=== PATIENT | male | born 1965 | race Caucasian/White ===

== ENCOUNTER 2018-04-09 18:59 | Outpatient (REF) | payer BC, SELFPAY ==
[2018-04-09 22:22] LABS: ALT 29 U/L (12-78); AST 19 U/L (15-37); Albumin 3.4 g/dL (3.4-5.0); Alkaline Phosphatase 70 U/L (46-116); Anion Gap 9.4 mmol/L (3-11); BUN 16 mg/dL (7-18); Bilirubin, Total 0.3 mg/dL (0.2-1.0); CO2 28.6 mmol/L (21.0-32.0); CREATININE 1.05 mg/dL (0.70-1.30); Calcium 8.4 mg/dL (8.5-10.1); Chloride 105 mmol/L (98-107); Glucose 78 mg/dL (70-100); Potassium 3.9 mmol/L (3.5-5.1); Sodium 143 mmol/L (136-145); Total Protein 6.8 g/dL (6.4-8.2)
== END 2018-04-09 19:19 ==
LOC: NCHCN 18:59
PROVIDERS: PCP Internal Medicine; Visit Provider Nurse Practitioner Family
DX: M54.16 Radiculopathy, lumbar region (principal); M54.2 Cervicalgia; R53.83 Other fatigue; R07.9 Chest pain, unspecified; G25.81 Restless legs syndrome; F32.9 Major depressive disorder, single episode, unspecified; F17.209 Nicotine dependence, unspecified, with unspecified nicotine-induced disorders; E66.9 Obesity, unspecified
CPT/HCPCS: 80053

== ENCOUNTER 2018-07-26 11:44 | Outpatient (CLI) | payer BC, SELFPAY ==
[2018-07-26 13:24] LABS: Ferritin 108 ng/mL (8-388); TSH 2.29 uIU/mL (0.358-3.74)
== END 2018-07-26 12:04 ==
PROVIDERS: PCP Internal Medicine; Visit Provider Nurse Practitioner
DX: M25.50 Pain in unspecified joint (principal); R53.83 Other fatigue
CPT/HCPCS: 36415; 82728; 84443

== ENCOUNTER 2019-08-20 14:50 | Outpatient (REF) | payer BC, SELFPAY ==
[2019-08-20 21:09] LABS: ALT 31 U/L (16-63); AST 16 U/L (15-37); Albumin 4.2 g/dL (3.4-5.0); Alkaline Phosphatase 76 U/L (46-116); Anion Gap 7.5 mmol/L (3-11); BUN 13 mg/dL (7-18); Bilirubin, Total 0.5 mg/dL (0.2-1.0); CO2 28.5 mmol/L (21.0-32.0); CREATININE 0.85 mg/dL (0.70-1.30); Calcium 9.4 mg/dL (8.5-10.1); Chloride 101 mmol/L (98-107); Glucose 101 mg/dL (74-106); Potassium 4.6 mmol/L (3.5-5.1); Sodium 137 mmol/L (136-145); Total Protein 7.7 g/dL (6.4-8.2)
[2019-08-22 10:04] LABS: HIV-1/2 Ag & Ab Screen Negative (Negative)
[2019-08-22 10:16] LABS: Hepatitis C Ab w Rflx HCV PCR Negative (Negative)
== END 2019-08-20 15:10 ==
LOC: NCHCN 14:50
PROVIDERS: PCP Internal Medicine; Visit Provider Nurse Practitioner Family
DX: E78.5 Hyperlipidemia, unspecified (principal); R07.9 Chest pain, unspecified; K21.9 Gastro-esophageal reflux disease without esophagitis; E66.9 Obesity, unspecified; Z11.4 Encounter for screening for human immunodeficiency virus [HIV]; Z11.59 Encounter for screening for other viral diseases
CPT/HCPCS: 80053; 86803; 87389

== ENCOUNTER 2019-09-10 01:14 | Outpatient (CLI) | payer BC, SELFPAY ==
--- NOTE | 2019-09-10 10:10 | DI.MRI_ITS ---
EXAM: MR LUMBAR SPINE WO CLINICAL HISTORY: LUMBAR BACK PAIN, WITH RADICULOPATHY,M54.16,M51.36,DEGENERATIVE DISC DISEAS. TECHNIQUE: Multiplanar multisequence MRI of the Lumbar spine was performed. COMPARISON: MR MRI - LUMBAR SPINE WO CONTRAST from 06/12/2015 FINDINGS: Bones: The last intervertebral disc space is designated the L5/S1 level for the numbering purpose of this examination. The vertebral body heights are well maintained. Alignment is satisfactory. Degene rative endplate signal changes are seen at multiple levels. Cord: The conus tip ends at the T12 level. It is of normal size and signal intensity. T12-L1: No disc herniations or bulges are present. No central spinal canal or neural foraminal stenos is. L1-2: No disc herniations or bulges are present. No central spinal canal or neural foraminal stenosis . L2-3: There is a mild diffuse disc bulge. The nerve endplate signal changes are present. No central spinal canal or neural foraminal stenosis. L3-4: There is a diffuse disc bulge and endplate degenerative signal change. Stable moderate central spinal canal stenosis is present. There is stable bilateral neural foraminal stenosis. Hypertrophi c changes of the facets and ligamentum flavum are noted. L4-5: There is a diffuse disc bulge present. Degenerative endplate signal changes are present. Ther e are hypertrophic changes of the facets and ligamentum flavum. These all contribute to cause modera te central spinal canal stenosis, severe left neural foraminal stenosis and moderate right neural for aminal stenosis.The findings appear stable compared to the prior examination. L5-S1: No disc herniations or bulges are present. No central spinal canal or neural foraminal stenosi s. Soft tissues: The visualized SI joints and sacrum are well maintained. The paraspinal soft tissues ar e unremarkable. IMPRESSION: Stable multilevel degenerative changes in the lumbar spine. DATA REPOSITORY:
== END 2019-09-10 01:34 ==
PROVIDERS: PCP Internal Medicine; Visit Provider Nurse Practitioner Family
DX: M54.5 Low back pain (principal); M54.16 Radiculopathy, lumbar region; M51.36 Other intervertebral disc degeneration, lumbar region; M48.061 Spinal stenosis, lumbar region without neurogenic claudication
CPT/HCPCS: 72148

== ENCOUNTER 2020-02-12 14:47 | Outpatient (CLI) | payer BC, SELFPAY ==
--- NOTE | 2020-02-12 09:00 | DI.RAD_ITS ---
EXAM: XR SHOULDER RT COMPLETE 2+V CLINICAL HISTORY: Rt shoulder pain. TECHNIQUE: 2D digital imaging was performed. COMPARISON: No exams were available for comparison FINDINGS: Moderate degenerative changes are seen at the acromioclavicular joint. There is a well corticated os seous density at the superior adjacent to the superior aspect of the distal clavicle which appears ch ronic. There is mild superior subluxation of the humeral head which may reflect chronic rotator cuff injury. There is a well corticated density inferior to the humeral head which appears chronic. No acute fracture or dislocation. The soft tissues are unremarkable. IMPRESSION: Degenerative changes of the right shoulder. DATA REPOSITORY: RADIATION DOSE DELIVERED:
== END 2020-02-12 15:07 ==
PROVIDERS: PCP Nurse Practitioner Family; Visit Provider Student in an Organized Health Care Education/Training Program
DX: M19.011 Primary osteoarthritis, right shoulder (principal)
CPT/HCPCS: 73030

== ENCOUNTER → 2020-02-26 03:15 | Outpatient (CLI) | payer BC, SELFPAY ==
--- NOTE | 2020-02-26 07:00 | DI.MRI_ITS ---
EXAM: MR UPPER JOINT RT WO CLINICAL HISTORY: Traumatic shoulder injury, profound weakness,? MASSIVE CHRONIC ROTATOR CUFF TECHNIQUE: Multiplanar multisequence MRI of the shoulder was performed. COMPARISON: CR XR SHOULDER RT COMPLETE 2+V from 02/12/2020 FINDINGS: MARROW:There is no evidence of fracture, Hill-Sachs deformity, nor ominous osseous lesions. Degenerat landen subarticular cyst is noted on the anterior aspect of the greater tuberosity. Degenerative subart icular cysts also seen in the osseous glenoid which measures 12 by 6 millimeters. ROTATOR CUFF MECHANISM: AC JOINT/ACROMIUM: There are advanced degenerative changes including intra-articular calcifications. There is some impingement of the subacromial space at this level. The undersurface of the acromion is flat.. There is no evidence of os acromiale. Supraspinatus: There is significant signal abnormality in the supraspinatus tendon. This traverses t he thickness of the tendon 1 location consistent with full-thickness tearing above the greater tubero sity. There is no retraction of the musculotendinous junction. There is increased signal at the mus culotendinous junction. There is fluid in the sub acromial bursa and also subcoracoid. Infraspinatus: Partial tearing. Interposed fluid at the upper musculotendinous junction. Significan t muscle belly atrophy which is significantly more so than seen in the supraspinatus. Teres Minor: Intact. No evidence of tear nor muscle atrophy. Subscapularis/anterior cuff: Thinning of the multi pennate insertional fibers but no full-thickness t ear. Some atrophy. BICEPS TENDON: Partial tearing and displaced from the intertubercular groove/perched at the lesser tu berosity and increased intrasubstance signal within the intra-articular aspect. Fluid in the tendon sheath noted. LABRUM: There is no obvious tear of the superior labrum posterior to the biceps insertion site. Is m ild irregularity of the posterior labrum. Degenerative subarticular cyst within the a posterior osse ous glenoid subjacent to the labrum. No obvious and anterior labral tearing. Mild increased signal in the inferior labrum. GLENOHUMERAL JOINT: Moderate-large joint effusion. Moderate degenerative changes on both sides of th e joint including degenerative subarticular cyst in the osseous glenoid. Some cartilage thinning. QUADRILATERAL SPACE: No evidence of mass in the region of the axillary nerve and dorsal circumflex hu meral vessels. Visualized triceps muscle at this level appears unremarkable. IMPRESSION: 1. Significant rotator cuff pathology including full-thickness supraspinatus tear and partial thickne ss tearing of the infraspinatus. There is significant atrophy of the infraspinatus. Signal abnormal ity is also noted in the subscapularis-anterior cuff but without full thickness tear. Prominent dege nerative changes in the acromioclavicular joint with impingement at this level evident. 2. Biceps tendon exhibits partial tearing and appears slightly medially displaced and is perched on t he lesser tuberosity. There is no evidence of SLAP-type labral tear. Some irregularity of the poste rior labrum is noted but without a prominent labral tear at this level. There is, however, a degener ative subarticular cyst in the posterior osseous glenoid subjacent to the labrum. 3. Moderate-large glenohumeral joint effusion. Fluid in the subacromial space. No obvious loose int ra-articular body. Mild-moderate degenerative changes in the glenohumeral joint. DATA REPOSITORY:
== END ==
PROVIDERS: PCP Nurse Practitioner Family; Visit Provider Student in an Organized Health Care Education/Training Program
DX: S46.011A Strain of muscle(s) and tendon(s) of the rotator cuff of right shoulder, initial encounter (principal); M19.011 Primary osteoarthritis, right shoulder; S46.211A Strain of muscle, fascia and tendon of other parts of biceps, right arm, initial encounter; M25.411 Effusion, right shoulder
CPT/HCPCS: 73221

== ENCOUNTER → 2020-05-01 03:57 | Outpatient (CLI) | payer BC, SELFPAY ==
--- NOTE | 2020-05-01 | DI.MRI_ITS ---
EXAM: MR LUMBAR SPINE WO CLINICAL HISTORY: SPINAL STENOSIS,BACK PAIN,M48.061. TECHNIQUE: Multiplanar multisequence MRI of the Lumbar spine was performed. COMPARISON: MR MR LUMBAR SPINE WO from 09/10/2019 FINDINGS: Bones: The last intervertebral disc space is designated the L5/S1 level for the numbering purpose of this examination. The vertebral body heights are well maintained. Alignment is satisfactory. The ma rrow signal characteristics are unremarkable. Cord: The conus tip ends at the T12 level. It is of normal size and signal intensity. T12-L1: No disc herniations or bulges are present. No central spinal canal or neural foraminal stenos is. L1-2: No disc herniations or bulges are present. No central spinal canal or neural foraminal stenosis . L2-3: Small endplate osteophytes with mild degenerative signal changes and mild disc bulging are agai n noted. No central spinal canal or neural foraminal stenosis. L3-4: Broad-based disc osteophytes. Ligamentous hypertrophy and facet degenerative changes combine t o produce moderate central canal stenosis, stable. There is bilateral neural foraminal narrowing, gr eater on the right. L4-5: Broad-based disc osteophytes are again noted. There are degenerative signal changes in the end plates. There are prominent facet degenerative changes on the left as well as ligamentous hypertroph y which combine with the disc bulging to produce a moderate to severe degree of central canal stenosi s. There is severe left neural foraminal narrowing and moderate to severe right neural foraminal maxwell rowing. Findings appear unchanged from the previous exam. L5-S1: No disc herniations or bulges are present. No central spinal canal or neural foraminal stenosi s. Soft tissues: The visualized SI joints and sacrum are well maintained. The paraspinal soft tissues ar e unremarkable. The aorta is normal in diameter. A small cyst is seen at the upper pole of left ki dney. IMPRESSION: Stable degenerative disc changes and facet degenerative changes, greatest at L4-5 where there is mode rate to severe central canal stenosis and severe neural foraminal narrowing. DATA REPOSITORY:
--- NOTE | 2020-05-01 | DI.MRI_ITS ---
EXAM: MR CERVICAL SPINE WO in CLINICAL HISTORY: CERVICALAGIA,M54.2 TECHNIQUE: Multiplanar multisequence MRI of the cervical spine was performed without intravenous con trast. COMPARISON: No exams were available for comparison FINDINGS: BONES: Vertebral body heights are maintained. Intervertebral disc spaces are normal. Alignment is nor mal. Bone marrow signal intensity is within normal limits. CERVICAL CORD: Craniovertebral junction is unremarkable. The cervical cord is normal size and signal intensity. SOFT TISSUES: Unremarkable. C2-3: No disc herniation or bulge is identified. C3-4: Mild loss of disc height. Broad-based disc osteophyte complex, eccentric toward the right, cau sing narrowing of the anterior dimension of the central canal and right foraminal encroachment. C4-5: Moderate loss of disc height. Broad-based concentric disc osteophyte complex causing narrowing of the AP dimension of the central canal as well as bilateral neural foraminal narrowing. C5-6: Moderate loss of disc height. Disc osteophyte complex eccentric toward the right causing narro wing of the AP dimension of the central canal as well as severe right neural foraminal narrowing. C6-7: Mild loss of disc height. Moderate broad-based disc bulging. Bilateral neural foraminal narro wing. C7-T1: No disc herniation or bulge is identified. IMPRESSION: Multi level degenerative disc changes with endplate osteophytes causing narrowing of the AP dimension of the central canal as well as neural foraminal narrowing at multiple levels. No focal disc hernia tion is seen. DATA REPOSITORY:
== END ==
PROVIDERS: PCP Nurse Practitioner Family; Visit Provider Physician Assistant Surgical
DX: M47.816 Spondylosis without myelopathy or radiculopathy, lumbar region (principal); M48.061 Spinal stenosis, lumbar region without neurogenic claudication; M47.812 Spondylosis without myelopathy or radiculopathy, cervical region; M48.02 Spinal stenosis, cervical region
CPT/HCPCS: 72141; 72148

== ENCOUNTER → 2020-05-05 01:36 | Outpatient (CLI) | payer BC, SELFPAY ==
--- NOTE | 2020-05-05 | DI.RAD_ITS ---
EXAM: XR CHEST 2V PA LATERAL CLINICAL HISTORY: PREOP, Z01.818,BACK PAIN TECHNIQUE: 2D digital imaging was performed. COMPARISON: No exams were available for comparison FINDINGS: The heart is not enlarged. The lungs are predominantly clear with minimal scarring in the lung bases. . No pleural effusion seen. Mediastinal contours appear intact. IMPRESSION: No evidence of acute process. RADIATION DOSE DELIVERED: Total DLP
== END ==
PROVIDERS: PCP Nurse Practitioner Family; Visit Provider Nurse Practitioner Family
DX: M51.16 Intervertebral disc disorders with radiculopathy, lumbar region (principal); Z01.818 Encounter for other preprocedural examination
CPT/HCPCS: 71046

== ENCOUNTER 2020-05-05 02:45 | Outpatient (CLI) | payer BC, SELFPAY ==
[2020-05-05 07:50] LABS: HGB 15.9 g/dL (13.5-17.5); MCH 31.3 pg (27.0-33.0); MCHC 33.8 % (32.0-36.0); MCV 92.5 fL (80-95); MPV 9.2 fL (8.0-11.0); Platelet Count 303 10^3/uL (130-400); RBC 5.08 10^6/uL (4.36-5.78); RDW 13.4 % (11.8-14.1); WBC 7.96 10^3/uL (4.4-10.8)
[2020-05-05 09:28] LABS: Anion Gap 11.9 mmol/L (3-11); BUN 20 mg/dL (7-18); CO2 25.1 mmol/L (21.0-32.0); CREATININE 0.9 mg/dL (0.70-1.30); Calcium 9.2 mg/dL (8.5-10.1); Chloride 104 mmol/L (98-107); Glucose 128 mg/dL (74-106); Potassium 4.5 mmol/L (3.5-5.1); Sodium 141 mmol/L (136-145)
== END 2020-05-05 02:46 | disposition home or self-care (01) ==
LOC: LBO 02:45
PROVIDERS: PCP Nurse Practitioner Family; Visit Provider Nurse Practitioner Family
DX: M54.16 Radiculopathy, lumbar region (principal); M51.36 Other intervertebral disc degeneration, lumbar region; Z01.818 Encounter for other preprocedural examination
CPT/HCPCS: 36415; 80048; 85027; 85610

== ENCOUNTER 2020-05-15 02:19 | Outpatient (CLI) | payer BC, SELFPAY ==
[2020-05-15 12:08] LABS: Source Nasal/Nares
[2020-05-15 20:44] LABS: COVID-19 PCR Negative (Negative)
== END 2020-05-15 02:20 | disposition home or self-care (01) ==
PROVIDERS: PCP Nurse Practitioner Family; Visit Provider Neurological Surgery
DX: Z20.822 Contact with and (suspected) exposure to COVID-19 (principal); Z01.818 Encounter for other preprocedural examination
CPT/HCPCS: 87635

== ENCOUNTER 2020-07-17 18:39 | Outpatient (REF) | payer BC, SELFPAY ==
[2020-07-17 21:41] LABS: ALT 39 U/L (16-63); AST 21 U/L (15-37); Alkaline Phosphatase 83 U/L (46-116); Bilirubin, Direct 0.1 mg/dL (0.0-0.2); Bilirubin, Total 0.3 mg/dL (0.2-1.0); Total Protein 7.3 g/dL (6.4-8.2)
== END 2020-07-17 18:40 | disposition home or self-care (01) ==
LOC: NCHCN 18:39
PROVIDERS: PCP Nurse Practitioner Family; Visit Provider Nurse Practitioner Family
DX: R53.83 Other fatigue (principal); R07.9 Chest pain, unspecified; K21.9 Gastro-esophageal reflux disease without esophagitis; F17.209 Nicotine dependence, unspecified, with unspecified nicotine-induced disorders; E78.5 Hyperlipidemia, unspecified
CPT/HCPCS: 80076

== ENCOUNTER 2020-08-25 16:53 | Outpatient (REF) | payer BC, SELFPAY ==
[2020-08-25 20:14] LABS: Abs Immature Grans 0.02 10^3/uL (0.0-0.06); Absolute Basophil Count 0.04 10^3/uL (0.0-0.2); Absolute Eosinophil Count 0.17 10^3/uL (0.0-0.7); Absolute Lymphocyte Count 2.02 10^3/uL (1.2-3.4); Absolute Monocyte Count 0.34 10^3/uL (0.1-0.8); Absolute Neutrophil Count 4.08 10^3/uL (1.2-6.7); Basophils % 0.6; Eosinophils % 2.5; HCT 48.1 % (40.0-50.0); HGB 15.6 g/dL (13.5-17.5); Immature Grans % 0.3; Lymphocytes % 30.3; MCH 30.8 pg (27.0-33.0); MCHC 32.4 % (32.0-36.0); MCV 95.1 fL (80-95); MPV 10.2 fL (8.0-11.0); Monocytes % 5.1; Neutrophils % 61.2; Nucleated RBC 0 %; Platelet Count 317 10^3/uL (130-400); RBC 5.06 10^6/uL (4.36-5.78); RDW 14.1 % (11.8-14.1); RDW-SD 49.6 fL; WBC 6.67 10^3/uL (4.4-10.8)
[2020-08-25 20:57] LABS: Iron 97 ug/dL (65-175); Total Iron Binding Capacity 348 ug/dL (250-450); Transferrin Sat 28 % (20-55)
[2020-08-25 21:14] LABS: ALT 39 U/L (16-63); AST 19 U/L (15-37); Albumin 3.8 g/dL (3.4-5.0); Alkaline Phosphatase 87 U/L (46-116); Anion Gap 12.8 mmol/L (3-11); BUN 15 mg/dL (7-18); Bilirubin, Total 0.4 mg/dL (0.2-1.0); CO2 24.2 mmol/L (21.0-32.0); Calcium 8.9 mg/dL (8.5-10.1); Chloride 105 mmol/L (98-107); Glucose 206 mg/dL (74-106); Potassium 4.1 mmol/L (3.5-5.1); Sodium 142 mmol/L (136-145); TSH (W/Ref FT4) 2.12 uIU/mL (0.36-3.74); Vitamin B12 342 pg/mL (193-986)
== END 2020-08-25 16:54 | disposition home or self-care (01) ==
LOC: NCHCN 16:53
PROVIDERS: PCP Nurse Practitioner Family; Visit Provider Nurse Practitioner Family
DX: R41.82 Altered mental status, unspecified (principal); F51.3 Sleepwalking [somnambulism]; G25.81 Restless legs syndrome
CPT/HCPCS: 80053; 82607; 83540; 83550; 84443; 85025

== ENCOUNTER 2020-11-25 11:51 | Outpatient (REF) | payer SELFPAY ==
[2020-11-27 12:10] LABS: COVID-19 RT-PCR UVMMC Result Negative (Negative)
== END 2020-11-25 11:52 | disposition home or self-care (01) ==
LOC: NCHCN 11:51
PROVIDERS: PCP Nurse Practitioner Family; Visit Provider Nurse Practitioner Family
DX: Z20.822 Contact with and (suspected) exposure to COVID-19 (principal)
CPT/HCPCS: U0003

== ENCOUNTER 2021-01-18 12:21 | Outpatient (REF) | payer BC, SELFPAY ==
[2021-01-18 16:09] LABS: Ferritin 104 ng/mL (26-388); Magnesium 1.9 mg/dL (1.8-2.4); Vitamin B12 380 pg/mL (193-986)
[2021-01-18 16:28] LABS: Iron 133 ug/dL (65-175); Total Iron Binding Capacity 338 ug/dL (250-450); Transferrin Sat 39 % (20-55)
== END 2021-01-18 12:22 | disposition home or self-care (01) ==
LOC: NCHCN 12:21
PROVIDERS: PCP Nurse Practitioner Family; Visit Provider Nurse Practitioner Family
DX: K30 Functional dyspepsia (principal); E55.9 Vitamin D deficiency, unspecified; R19.7 Diarrhea, unspecified; R05.8 Other specified cough
CPT/HCPCS: 82607; 82728; 83540; 83550; 83735

== ENCOUNTER 2021-11-08 14:37 | Outpatient (REF) | payer BC, SELFPAY ==
[2021-11-08 20:11] LABS: Abs Immature Grans 0.03 10^3/uL (0.0-0.06); Absolute Basophil Count 0.06 10^3/uL (0.0-0.2); Absolute Eosinophil Count 0.29 10^3/uL (0.0-0.7); Absolute Lymphocyte Count 2.61 10^3/uL (1.2-3.4); Absolute Monocyte Count 0.66 10^3/uL (0.1-0.8); Absolute Neutrophil Count 5.33 10^3/uL (1.2-6.7); Basophils % 0.7; Eosinophils % 3.2; HCT 45.7 % (40.0-50.0); HGB 15.2 g/dL (13.5-17.5); Immature Grans % 0.3; Lymphocytes % 29.1; MCH 31.1 pg (27.0-33.0); MCHC 33.3 % (32.0-36.0); MCV 94 fL (80-95); Monocytes % 7.3; Neutrophils % 59.4; Platelet Count 313 10^3/uL (130-400); RBC 4.88 10^6/uL (4.36-5.78); RDW 13.6 % (11.8-14.1); RDW-SD 46.8 fL; WBC 8.98 10^3/uL (4.4-10.8)
[2021-11-08 20:42] LABS: Iron 77 ug/dL (65-175); Total Iron Binding Capacity 313 ug/dL (250-450); Transferrin Sat 25 % (20-55)
[2021-11-08 21:03] LABS: Calculated LDL 113 mg/dL (<100); Cholesterol 195 mg/dL (<200); Ferritin 109 ng/mL (26-388); HDL Cholesterol 35 mg/dL (40-60); Magnesium 1.9 mg/dL (1.8-2.4); Triglyceride 236 mg/dL (<150); Vitamin B12 352 pg/mL (193-986)
[2021-11-08 21:38] LABS: Vitamin D 25 Total 16.6 ng/mL (30-100)
== END 2021-11-08 14:38 | disposition home or self-care (01) ==
LOC: NCHCN 14:37
PROVIDERS: PCP Nurse Practitioner Family; Visit Provider Nurse Practitioner Family
DX: E61.1 Iron deficiency (principal); E53.8 Deficiency of other specified B group vitamins; E55.9 Vitamin D deficiency, unspecified; E78.5 Hyperlipidemia, unspecified; R53.83 Other fatigue; R05.9 Cough, unspecified
CPT/HCPCS: 80061; 82306; 82607; 82728; 83540; 83550; 83735; 85025

== ENCOUNTER 2021-12-27 13:45 | Outpatient (REF) | payer BC, SELFPAY ==
[2021-12-27 16:13] LABS: ALT 40 U/L (16-63); AST 21 U/L (15-37); Albumin 4.2 g/dL (3.4-5.0); Alkaline Phosphatase 85 U/L (46-116); Anion Gap 6.3 mmol/L (3-11); BUN 20 mg/dL (7-18); Bilirubin, Total 0.4 mg/dL (0.2-1.0); CO2 29.7 mmol/L (21.0-32.0); CREATININE 0.8 mg/dL (0.70-1.30); Calcium 9.7 mg/dL (8.5-10.1); Calculated LDL 132 mg/dL (<100); Chloride 104 mmol/L (98-107); Cholesterol 189 mg/dL (<200); Estimated GFR 102.58 (mL/min/1.73m2); Glucose 111 mg/dL (74-106); HDL Cholesterol 43 mg/dL (40-60); Potassium 4.9 mmol/L (3.5-5.1); Sodium 140 mmol/L (136-145); Total Protein 7.6 g/dL (6.4-8.2); Triglyceride 73 mg/dL (<150)
== END 2021-12-27 13:46 | disposition home or self-care (01) ==
LOC: NCHCN 13:45
PROVIDERS: PCP Nurse Practitioner Family; Visit Provider Nurse Practitioner Family
DX: E78.5 Hyperlipidemia, unspecified (principal); R73.9 Hyperglycemia, unspecified
CPT/HCPCS: 80053; 80061

== ENCOUNTER 2022-05-10 17:25 | Outpatient (REF) | payer BC, SELFPAY ==
[2022-05-10 15:43] LABS: Abs Immature Grans 0.02 10^3/uL (0.0-0.06); Absolute Basophil Count 0.05 10^3/uL (0.0-0.2); Absolute Lymphocyte Count 2.03 10^3/uL (1.2-3.4); Absolute Monocyte Count 0.56 10^3/uL (0.1-0.8); Absolute Neutrophil Count 4.19 10^3/uL (1.2-6.7); Basophils % 0.7; Eosinophils % 4.2; HCT 46.1 % (40.0-50.0); HGB 15.4 g/dL (13.5-17.5); Immature Grans % 0.3; Lymphocytes % 28.4; MCHC 33.4 % (32.0-36.0); MCV 93 fL (80-95); MPV 10.2 fL (8.0-11.0); Monocytes % 7.8; Neutrophils % 58.6; Platelet Count 339 10^3/uL (130-400); RBC 4.96 10^6/uL (4.36-5.78); RDW 13.9 % (11.8-14.1); RDW-SD 47.6 fL; WBC 7.15 10^3/uL (4.4-10.8)
[2022-05-10 15:54] LABS: Iron 116 ug/dL (65-175); Total Iron Binding Capacity 343 ug/dL (250-450); Transferrin Sat 34 % (20-55)
[2022-05-10 16:00] LABS: Hemoglobin A1C 6.5 % (<5.7)
[2022-05-10 16:18] LABS: Vitamin D 25 Total 11.9 ng/mL (30-100)
[2022-05-10 16:19] LABS: Ferritin 115 ng/mL (26-388); Vitamin B12 439 pg/mL (193-986)
== END 2022-05-10 17:26 | disposition home or self-care (01) ==
LOC: NCHCN 17:25
PROVIDERS: PCP Nurse Practitioner Family; Visit Provider Nurse Practitioner Family
DX: E61.1 Iron deficiency (principal); E53.8 Deficiency of other specified B group vitamins; E55.9 Vitamin D deficiency, unspecified; R73.9 Hyperglycemia, unspecified; F52.21 Male erectile disorder; F17.209 Nicotine dependence, unspecified, with unspecified nicotine-induced disorders; R05.3 Chronic cough; E66.3 Overweight
CPT/HCPCS: 82306; 82607; 82728; 83036; 83540; 83550; 85025

== ENCOUNTER 2022-07-29 02:25 | Outpatient (CLI) | payer BC, SELFPAY ==
[2022-07-29] MEDS: Albuterol HFA 18 GM 200 PUFF INH IH (14:19)
[2022-07-29] MEDS: Inhaler, Assist Device 1 EACH MC (14:20)
--- NOTE | 2022-08-05 12:47 | W.PFT ---
Date of service: 07/29/22 Time of Service: 13:13 Pulmonary Function Test Result Indications: Wheezing Interpretation Spirometry: There is no airflow limitation. There is no significant bronchodilator response. Lung Volumes: There is air trapping. Diffusion Capacity: Normal diffusion. Airway Pressure: Normal airways resistance. Impression There is no airflow obstruction but there is air trapping which can be seen in asthma. Clinical Correlation therefore is recommended.
== END 2022-07-29 02:26 | disposition home or self-care (01) ==
LOC: RT 02:25
PROVIDERS: PCP Nurse Practitioner Family; Visit Provider Nurse Practitioner Family
DX: R06.2 Wheezing (principal)
CPT/HCPCS: 94060; 94726; 94729

== ENCOUNTER 2023-05-03 14:31 | Outpatient (REF) | payer BC, SELFPAY ==
[2023-05-03 15:15] LABS: Hemoglobin A1C 6.1 % (<5.7)
[2023-05-03 15:37] LABS: ALT 37 U/L (16-63); AST 26 U/L (15-37); Albumin 4.1 g/dL (3.4-5.0); Alkaline Phosphatase 75 U/L (46-116); Anion Gap 10.5 mmol/L (3-11); BUN 21 mg/dL (7-18); Bilirubin, Total 0.6 mg/dL (0.2-1.0); CO2 25.5 mmol/L (21.0-32.0); CREATININE 0.7 mg/dL (0.70-1.30); Calcium 9.1 mg/dL (8.5-10.1); Calculated LDL 130 mg/dL (<100); Chloride 104 mmol/L (98-107); Cholesterol 183 mg/dL (<200); Estimated GFR 106.14 (mL/min/1.73m2); Glucose 98 mg/dL (74-106); HDL Cholesterol 45 mg/dL (40-60); Potassium 4.9 mmol/L (3.5-5.1); Sodium 140 mmol/L (136-145); Total Protein 7.4 g/dL (6.4-8.2); Triglyceride 42 mg/dL (<150); Vitamin B12 415 pg/mL (193-986)
== END 2023-05-03 14:32 | disposition home or self-care (01) ==
LOC: NCHCN 14:31
PROVIDERS: PCP Nurse Practitioner Family; Referring Provider Nurse Practitioner Family; Visit Provider Nurse Practitioner Family
DX: E78.5 Hyperlipidemia, unspecified (principal); E11.9 Type 2 diabetes mellitus without complications; E55.9 Vitamin D deficiency, unspecified
CPT/HCPCS: 80053; 80061; 82306; 82607; 83036

== ENCOUNTER 2023-07-31 12:05 | Day surgery (SDC) | payer BC, SELFPAY ==
--- NOTE | 2023-07-30 10:10 | W.PM.DSUDISC ---
Date of service: 07/31/23 Time of Service: 13:45 Discharge Plan Disposition Patient Disposition: Home Condition: Good Discharge Details Reason For Visit: screening colonoscopy Attending Provider: Mandeep Small Primary Care Provider: Viola Reyes Home Meds and New Rx's Prescriptions: Continued cholecalciferol (vitamin D3) 25 mcg (1,000 unit) capsule 25 mcg PO DAILY mecobalamin (vitamin B12) 1,000 mcg lozenge 1,000 mcg PO DAILY Rx Instructions: allow to dissolve in mouth OR may chew lightly before swallowing albuterol sulfate 90 mcg/actuation aerosol powdr breath activated 2 inh inhalation Q6H PRN tiotropium bromide [Spiriva with HandiHaler] 18 mcg capsule, w/inhalation device 1 cap inhalation DAILY Rx Instructions: puncture 1 cap using device; one dose = 2 inhalations atorvastatin 40 mg tablet 40 mg PO HS Neupro 2 mg/24 hour patch 24 hour 1 patch transdermal DAILY gabapentin 300 mg capsule See Rx Instructions PO .COMPLEX Rx Instructions: take 1-2 caps orally as needed 3-5 times per month when RLS are terrible; sildenafil 50 mg tablet 50 mg PO DAILY PRN (Reason: sexual activity) Qty: 30 0RF Rx Instructions: administer 30 minutes to 4 hours before activity Discontinued bisacodyl [Dulcolax (bisacodyl)] 5 mg tablet,delayed release (DR/EC) 5 mg PO ONCE Qty: 4 0RF Rx Instructions: Take per colonoscopy instructions provided by ordering providers office polyethylene glycol 3350 17 gram/dose powder 17 g PO ONCE Qty: 238 0RF Rx Instructions: Take per colonoscopy instructions provided by ordering providers office Discharge Instructions Instructions: Colorectal Polyps (GEN) Additional Instructions: Yunior, we are able to complete your colonoscopy today without any issues. Your prep was excellent negative everything just fine. I did find 2 polyps today, which I removed. These will be sent off for testing. Once we know the nature of the polyps, the office will be in touch regarding recommendations for the timing of your next colonoscopy. If you need anything or have any questions in the meantime, please do not hesitate to call. 1. If tolerated, consume a soft, low fiber diet for 1-2 days. [address] Do not drive, drink alcohol, operate machinery, make critical decisions, or do activities that require coordination or balance for 24 hours. 3. Because air was put into your colon during the procedure, expelling air from your rectum (passing gas or farting) is normal. 4. You may not have a bowel movement for 1-3 days because of the colonoscopy prep. This is normal. 5. Go directly to the emergency room if you notice any of the following: Develop chills (warm to touch), or if you have a thermometer and your temperature is above 101 Difficulty breathing or difficultly swallowing Persistent vomiting Severe abdominal pain, other than gas cramps Severe chest pain Black, tarry stools Any bleeding ? exceeding one tablespoon 6. Call your physician if the site where your intravenous was started becomes red, swollen, painful, and warm to touch. 7. Your physician has reviewed your pre-procedure medications. Please continue to take those medications as previously ordered. You will be given specific information/education regarding any changes to your medications before leaving. Activity:: Activity as Tolerated Diet:: As Tolerated Discharge Orders Discharge Orders: Discharge Order (Routine); Ordered 07/30/23 Ordered By: Mandeep Small DS: Diagnosis Discharge Diagnosis (1) Encounter for screening colonoscopy: Status: Acute Asessment and Plan: Follow-up on polypectomy results
--- NOTE | 2023-07-30 10:16 | COLE_ITS ---
Date of service: 07/31/23 Time of Service: 13:46 Colonoscopy Report Date of procedure: 07/31/23 Pre-op diagnosis general: screening colonoscopy Post-op diagnosis procedure note: other (Colon polyps) Procedure: colonoscopy with polypectomy Surgeon: Mandeep Small Anesthesia Type: General:No Airway Estimated blood loss (mL): 5 Pathology: other (0.5 cm polyp at 50 cm, 0.25 cm polyp at 20 cm) Complications: None Disposition: same day Indications: Alistair is a 57 year old man who needs a screening colonoscopy Prep: Miralax/Dulcolax Procedure Start Time: 13:08 Procedure End Time: 13:26 Retraction Time: 12 Findings: 0.5 cm polyp at 50 cm, 0.25 cm polyp at 20 cm Procedure Description: After the induction of anesthesia, and with the patient in left lateral decubitus position, I began by performing an external anorectal exam.? Perineum and skin were normal, as was the anal verge.? There was no evidence of external hemorrhoids.? Next, I performed a digital rectal exam.? I did not appreciate any abnormal findings.? Next, I advanced a colonoscope into the rectal vault.? I performed retroflexion.? This was normal.? Using insufflation, I then advanced the colonoscope beyond the rectal folds and into the sigmoid colon before adv ancing towards the cecum.? The scope was noted to be in the cecum by identification of the ileocecal valve and appendiceal orifice.? I then began withdrawing the colonoscope using repeated irrigation as necessary for full evaluation of the colonic mucosa. Around 50 cm from the anal verge I identified a 0.25 cm polyp. ?It appeared flat in character. ?I was able to remove this with a cold forcep polypectomy. ?I examined the site, and there was minimal bleeding. ?Once this was completed, I continued to withdraw the scope and examine the remainder of the colonic mucosa.? I found another polyp at 20 cm from the anal verge. This was also flat and about 0.25 cm. This was also removed with cold forceps without any issues once the scope was withdrawn to the level of the rectum, great care was taken to examine portions of the rectal folds.? Finally, the scope was withdrawn and the patient was brought to the same-day surgery recovery unit as the anesthetic wore off. ?The findings and instructions were shared with the patient prior to discharge. [place] Bowel Prep [facility] Bowel Prep Right Colon: 3 Left Colon: 3 Transverse Colon: 3 Total Score: 9
[2023-07-31 12:25] VITALS: BP 113/72; PULSE 77; RESP 17; TEMP 36.4; O2SAT 98
--- NOTE | 2023-07-31 12:48 | W.ANESPRE ---
General Info Date of Service Date Performed: 07/31/23 Height: 5 ft 8 in Weight: 81.3 kg Body Mass Index (BMI): 27.2 Surgical Procedure: Operation Date: 07/31/23 13:20 Proposed Procedure Side Surgeon teagan Small MD Meds Allergies and Home Medications Allergies Allergy/AdvReac Type Severity Reaction Status Date / Time No Known Allergies Allergy Verified 07/31/23 12:33 Home Medication Medication Instructions Recorded gabapentin 300 mg capsule See Rx Instructions PO .COMPLEX 11/23/22 rotigotine 2 mg/24 hour 1 patch transdermal DAILY 11/23/22 transdermal 24 hour patch (Neupro) albuterol sulfate 90 mcg/actuation 2 inh inhalation Q6H PRN 05/15/23 breath activated powder inhaler cholecalciferol (vitamin D3) 25 25 mcg PO DAILY 05/15/23 mcg (1,000 unit) capsule mecobalamin (vitamin B12) 1,000 1,000 mcg PO DAILY 05/15/23 mcg lozenges tiotropium bromide 18 mcg capsule 1 cap inhalation DAILY 05/15/23 with inhalation device (Spiriva with HandiHaler) sildenafil 50 mg tablet 50 mg PO DAILY PRN sexual activity 05/16/23 #30 tabs atorvastatin 40 mg tablet 40 mg PO HS 07/27/23 Current Visit Medications: Current Medications Generic Name Dose Route Start Last Admin Trade Name Freq PRN Reason Stop Dose Admin Hyoscyamine Sulfate 0.125 mg 07/30/23 10:17 Hyoscyamine 0.125 Mg Sl/Oral/Chew SL 08/29/23 10:16 DIRECTED PRN Ringer's Solution 1,000 mls @ 80 mls/hr 07/31/23 06:00 IV 07/31/23 23:59 INFUSION LEATHA IV Miscellaneous Supplies 1 each 07/31/23 06:00 Iv Access IV 07/31/23 23:59 DIRECTED LEATHA Ondansetron HCl 4 mg 07/30/23 10:17 Ondansetron 4 Mg/2 Ml Vial IVP 08/29/23 10:16 Q4H PRN PRN Nausea / Vomiting Sodium Chloride 0 ml 07/31/23 06:00 Normal Saline Flush 10 Ml Syr IV 07/31/23 23:59 PRN PRN Sodium Chloride 0 ml 07/31/23 06:00 Normal Saline 10 Ml Vial IJ 07/31/23 23:59 DIRECTED PRN Sterile Water 0 ml 07/31/23 06:00 Water,Injection,Sterile 10 Ml Vial IJ 07/31/23 23:59 DIRECTED PRN PFSH Active Problems Active Problems: Problem Status Onset Code Encounter for screening colonoscopy Z12.11 Vitamin D deficiency E55.9 Fatigue R53.83 Esophageal reflux K21.9 Diabetes mellitus E11.9 Depression F32.A Asthma J45.909 Altered mental state R41.82 Bursitis of right shoulder M75.51 Paralabral cyst of right shoulder S43.431A Rupture of left proximal biceps tendon S46.212A Tendonitis of long head of biceps brachii of right shoulder M75.21 Traumatic tear of right rotator cuff S46.011A Medical History Medical History Erectile dysfunction H/O esophageal reflux History of depression Hyperlipidemia Low back pain Obstructive sleep apnea Overweight Restless leg syndrome Tobacco user Surgical History Surgical History History of spinal surgery L-spine April 2020 at [facility] S/P hernia repair S/P knee surgery Tobacco Smoking/Tobacco Use Status: Current every day Tobacco Type: cigars Alcohol Alcohol Intake: current Alcohol intake frequency: holidays/special occasions only Substance Use Substance use: Never Substance use type: does not use Vital Signs and Lab Results Vital Signs Most Recent Vital Signs in EMR: Most Recent Vital Signs Temp Pulse Resp BP Pulse Ox 36.4 C L 77 17 113/72 98 07/31/23 12:25 07/31/23 12:25 07/31/23 12:25 07/31/23 12:25 07/31/23 12:25 Lab Results Blood Type / Crossmatch: No Data to Display Complete Blood Count: No Data to Display Complete Metabolic Panel: No Data to Display Liver Function Panel: No Data to Display Coagulation Panel: No Data to Display Cardiac Panel: No Data to Display Arterial Blood Gas: No Data to Display Venous Blood Gas: No Data to Display Pancreas Panel: No Data to Display Thyroid Panel: No Data to Display Infectious Disease: No Data to Display Blood Cultures: No Data to Display Toxicology Panel: No Data to Display Imaging and Studies Imaging and Studies Study information below may be from another EMR and interpreted by another provider. Please see original notes in EMR for more complete details. Pulmonary Function Summary: Date of service: 07/29/22 Time of Service: 13:13 Pulmonary Function Test Result Indications: Wheezing Interpretation Spirometry: There is no airflow limitation. There is no significant bronchodilator response. Lung Volumes: There is air trapping. Diffusion Capacity: Normal diffusion. Airway Pressure: Normal airways resistance. Impression There is no airflow obstruction but there is air trapping which can be seen in asthma. Clinical Correlation therefore is recommended. Anesthesia Assessment and Plan Anesthesia History Personal History: No History of Anesthesia Complications Family History: No Family History of Anesthesia Complications Exercise Tolerance Exercise Tolerance: Metabolic Equivalents>4 Pertinent Negatives Pertinent Negatives: No Symptoms of GERD, No Major Cardiovascular Symptoms or Complaints and No History of CVA/TIA Cardiac & Pulmonary Exam Cardiac Exam: Normal S1/S2 Heart Sounds Pulmonary Exam: Clear Bilateral Breath Sounds Implantable Cardiac Device Does patient have a Pacemaker or an ICD?: No Airway Exam Known Difficult Airway: No Mallampati Class: 1 Mouth Opening: Normal (> 3cm) Thyromental Distance: Greater than 3 cm Neck Range of Motion: Full ROM Neck Circumference: Normal Teeth Condition: Normal Dentition ASA Classification ASA Score: ASA 2 Emergency Case?: No NPO Status NPO Status: NPO Clears >2 hours, Solids >8 hours Anesthesia Plan Resuscitation Status: Full Code Anesthesia Technique: General Anesthesia Airway Planned: Natural Airway Monitors Used: Standard Monitors
[2023-07-31 12:53] VITALS: BMI 27.2
[2023-07-31] MEDS: Lactated Ringers 1,000 ML 80 ML IV (12:55)
--- NOTE | 2023-07-31 13:14 | BOWEL_PTH ---
PATIENT: Alistair Aponte LOC: [facility] U#:[id number] AGE/SX: 57/M ROOM: RE07/31/[address]: Mandeep Small MD : [id number] BED: DIS: 07/31/2023 SPEC #: [id number] RECD: 07/31/23 18:01 STATUS: [facility] REQ #: [id number] ANGÉLICA: 07/31/23 13:[address]: Mandeep Small DEPT: Surgical Specimen RECD BY: Yuliya Ribera ENTERED: 07/31/23 18:02 SP TYPE: Bowel OTHR DR: Viola Reyes Tissues: 1 - BIOPSY BOWEL 2 - BIOPSY BOWEL Procedures: GROSS AND MICRO LEVEL 4 Comments: [id number]
[2023-07-31 13:36] VITALS: BP 104/68; PULSE 65; RESP 16; TEMP 36; O2SAT 92
--- NOTE | 2023-07-31 13:41 | W.ANESPOSTOP ---
Postoperative Evaluation Date, Time and Location Date Performed: 07/31/23 Time Performed: 13:41 Patient Location: Day Surgery Unit Vital Signs Most Recent Imported Vital Signs: Most Recent Vital Signs Temp Pulse Resp BP Pulse Ox 36.0 C L 65 16 104/68 92 07/31/23 13:36 07/31/23 13:36 07/31/23 13:36 07/31/23 13:36 07/31/23 13:36 Pain Score Most Recent Pain Score: Most Recent Pain Score Pain Level 0 07/31/23 13:36 Assessment Mental Status: Awake (Alert & Oriented to Patient Baseline) Airway and Respiratory Function: Patent airway with normal (patient baseline) respiratory exam Cardiovascular Function: Hemodynamically Stable Hydration Status: Adequately Hydrated Nausea & Vomiting: No Nausea or Vomiting Pain: Pt. Denies Any Pain Peripheral Nerve Block: Patient did not receive a nerve block
[2023-07-31 14:06] VITALS: BP 133/92; PULSE 68; RESP 16; TEMP 36.3; O2SAT 97
== END 2023-07-31 14:21 | disposition home or self-care (01) ==
LOC: SUR 12:05
PROVIDERS: PCP Nurse Practitioner Family; Visit Provider Surgery
PROC: 0DJD8ZZ Inspection of Lower Intestinal Tract, Via Natural or Artificial Opening Endoscopic (ICD-10-PCS; CPT 45378; principal; 2023-07-31 13:15)
DX: Z12.11 Encounter for screening for malignant neoplasm of colon (principal); K63.5 Polyp of colon; K21.9 Gastro-esophageal reflux disease without esophagitis; K63.89 Other specified diseases of intestine
CPT/HCPCS: 45380; 88305; J2704

== ENCOUNTER 2023-11-23 15:26 | Outpatient (REF) | payer BC, SELFPAY ==
[2023-11-23 15:38] LABS: ALT 41 U/L (16-63); AST 28 U/L (15-37); Albumin 4.3 g/dL (3.4-5.0); Alkaline Phosphatase 98 U/L (46-116); Anion Gap 8.9 mmol/L (3-11); BUN 20 mg/dL (7-18); Bilirubin, Total 0.65 mg/dL (0.2-1.0); CO2 28.1 mmol/L (21.0-32.0); CREATININE 0.9 mg/dL (0.70-1.30); Calcium 9.6 mg/dL (8.5-10.1); Calculated LDL 97 mg/dL (<100); Chloride 100 mmol/L (98-107); Cholesterol 153 mg/dL (<200); Estimated GFR 98.38 (mL/min/1.73m2); Glucose 85 mg/dL (74-106); HDL Cholesterol 47 mg/dL (40-60); Potassium 4.3 mmol/L (3.5-5.1); Sodium 137 mmol/L (136-145); Total Protein 7.8 g/dL (6.4-8.2); Triglyceride 47 mg/dL (<150)
== END 2023-11-23 15:27 | disposition home or self-care (01) ==
LOC: NCHCN 15:26
PROVIDERS: PCP Nurse Practitioner Family; Visit Provider Nurse Practitioner Family
DX: E78.5 Hyperlipidemia, unspecified (principal)
CPT/HCPCS: 80053; 80061

== ENCOUNTER 2024-07-05 12:04 | Inpatient (IN) | payer BC, SELFPAY ==
[2024-07-05] VITALS (71 sets, daily range): BP systolic 90–152; BP diastolic 49–97; PULSE 50–98; RESP 3–27; TEMP 36.6–37.4; O2SAT 83–100
--- NOTE | 2024-07-05 12:00 | RT.EKG_ITS ---
APPROVED REPORT Exam: Resting ECG Reason for Exam: chest pain Patient Location: E HR:65 bpm ECG Measurements Heart Rate 65 AXIS ME 176 P 53 QRSd 129 QRS -20 QT 405 T 13 QTc 420 Conclusion Sinus rhythm, rate 65 RBBB, no priors available for comparison No STEMI
[2024-07-05] MEDS: Albuterol/Ipratropium 3 ML UPD VIAL UPD (12:24)
[2024-07-05 12:25] LABS: Abs Immature Grans 0.03 10^3/uL (0.0-0.06); Absolute Basophil Count 0.05 10^3/uL (0.0-0.2); Absolute Lymphocyte Count 2.09 10^3/uL (1.2-3.4); Absolute Monocyte Count 0.75 10^3/uL (0.1-0.8); Absolute Neutrophil Count 6.88 10^3/uL (1.2-6.7); Basophils % 0.5 %; HCT 44.7 % (40.0-50.0); HGB 15.4 g/dL (13.5-17.5); Immature Grans % 0.3 %; Lymphocytes % 20.9 %; MCH 31.4 pg (27.0-33.0); MCHC 34.5 % (32.0-36.0); MCV 91 fL (80-95); MPV 9.2 fL (8.0-11.0); Monocytes % 7.5 %; Neutrophils % 68.8 %; Platelet Count 266 10^3/uL (130-400); RDW 14.1 % (11.8-14.1); RDW-SD 47.6 fL
[2024-07-05] MEDS: MAGNESIUM SULFATE 2 GM/50 ML BAG IV_INF (12:25)
[2024-07-05] MEDS: methylPREDNISolone SUCC 125 MG VIAL IVP (12:26)
[2024-07-05 12:47] LABS: ALT 42 U/L (16-63); AST 135 U/L (15-37); Albumin 3.9 g/dL (3.4-5.0); Alkaline Phosphatase 85 U/L (46-116); Anion Gap 9.1 mmol/L (3-11); BUN 29 mg/dL (7-18); Bilirubin, Total 0.6 mg/dL (0.2-1.0); CO2 24.9 mmol/L (21.0-32.0); Calcium 9.4 mg/dL (8.5-10.1); Chloride 100 mmol/L (98-107); Estimated GFR 86.16 (mL/min/1.73m2); Glucose 141 mg/dL (74-106); Magnesium 2.1 mg/dL (1.8-2.4); Potassium 3.8 mmol/L (3.5-5.1); Sodium 134 mmol/L (136-145); Total Protein 7.6 g/dL (6.4-8.2)
[2024-07-05 12:48] LABS: Troponin I 12674 ng/L (<or=76)
[2024-07-05 13:00] LABS: COVID-19 PCR Negative (Negative); Influenza A PCR Negative (Negative); Influenza B PCR Negative (Negative); RSV PCR Negative (Negative)
--- NOTE | 2024-07-05 13:03 | DI.RAD_ITS ---
Exam(s) XR CHEST 2V PA LATERAL EXAM: XR CHEST 2V PA LATERAL CLINICAL HISTORY: Chest pain. TECHNIQUE: 2D digital imaging was performed. COMPARISON: CR XR CHEST 2V PA LATERAL from 05/05/2020 FINDINGS: 2 views: Heart size is normal. The mediastinum is not widened. Mild increased lung markings bilaterally but no confluent infiltrates nor pleural effusions. No evid ence of pulmonary edema. There is some mild peribronchial cuffing noted in the right parahilar regio n. IMPRESSION: Mild increased markings and peribronchial cuffing. No confluent infiltrates and no pleural effusions DATA REPOSITORY: RADIATION DOSE DELIVERED:
[2024-07-05 13:05] LABS: NT-proBNP 269 pg/mL (<300)
[2024-07-05] MEDS: Heparin in 0.45% NaCl 25,000 UNIT/250 ML BAG 10 UNIT IVINF (13:26)
--- NOTE | 2024-07-05 13:30 | RT.EKG_ITS ---
APPROVED REPORT Exam: Resting ECG Reason for Exam: Repeat EKG Patient Location: E HR:64 bpm ECG Measurements Heart Rate 64 AXIS NH 177 P 79 QRSd 132 QRS -29 QT 417 T -19 QTc 431 Conclusion Sinus rhythm, rate 64 RBBB Q wave III, aVF No dynamic ischemic changes from priors
[2024-07-05 13:42] LABS: Troponin I 13593 ng/L (<or=76)
[2024-07-05 14:03] LABS: PTT Activated 24.3 sec (20.6-30.2)
[2024-07-05] MEDS: Aspirin 325 MG TAB PO (14:08)
[2024-07-05 14:26] LABS: Source Nasopharynx
--- NOTE | 2024-07-05 14:28 | ED.GENADUL_ITS ---
Discharge Plan Disposition Patient Disposition: Admit to [facility] Condition: Fair Discharge Details Chief Complaint: Chest Pain Clinical Impression: Acute non-ST elevation myocardial infarction (NSTEMI), COPD (chronic obstructive pulmonary disease) Admit Date/Time: 07/05/24 16:10 Admit Provider: Naresh Mcclendon Attending Provider: Naresh Mcclendon Primary Care Provider: Viola Reyes ED Provider: Rajani Ocampo Discharge Data Discharge Date/Time-TO BE ENTERED AT DEPARTURE: 07/05/24 16:22 HPI General Mode of arrival: ambulatory . Date/Time Provider Initiated Documentation: 07/05/24 12:15 . Limitations to Documentation: no limitations . Information obtained by: patient and old records reviewed . HPI Narrative: This is a 58-year-old male patient with past medical history significant for COPD, asthma, diabetes, presenting for evaluation of shortness of breath, cough, and chest pain. He is a smoker who experiences intermittent chest irritation, particularly during the winter months, which triggers coughing spells. These episodes can persist for several days or even weeks before subsiding, only to recur later. On Monday, he developed allergy symptoms, including watery eyes and a runny nose, accompanied by a cough. The previous night, he experienced severe coughing that led to breathlessness. He also has a history of asthma and used his inhaler, which improved his breathing. However, at around 2300 hours, he began experiencing widespread chest and back pain, described as a combination of pressure and a [id number] sensation going down his arms. He considered seeking hospital care but decided against it as the symptoms gradually subsided. He took ibuprofen and Tylenol for relief. As the effects of the medication wore off, the pain returned, and he once again experienced difficulty breathing. Currently, he rates his chest pain as a 3 or 4 on a scale of 10. He was administered a treatment for his lungs due to significant pressure and breathing difficulties. He does not take steroids for his respiratory condition and has never required hospitalization for his breathing. Related Data Home Medications ?Medication ?Instructions ?Recorded ?Confirmed gabapentin 300 mg capsule See Rx Instructions PO .COMPLEX 11/23/22 07/31/23 rotigotine 2 mg/24 hour 1 patch transdermal DAILY 11/23/22 07/31/23 transdermal 24 hour patch (Neupro) albuterol sulfate 90 mcg/actuation 2 inh inhalation Q6H PRN 05/15/23 07/31/23 breath activated powder inhaler cholecalciferol (vitamin D3) 25 25 mcg PO DAILY 05/15/23 07/31/23 mcg (1,000 unit) capsule mecobalamin (vitamin B12) 1,000 1,000 mcg PO DAILY 05/15/23 07/31/23 mcg lozenges tiotropium bromide 18 mcg capsule 1 cap inhalation DAILY 05/15/23 07/31/23 with inhalation device (Spiriva with HandiHaler) atorvastatin 40 mg tablet 40 mg PO HS 07/27/23 07/31/23 sildenafil 100 mg tablet (Viagra) 100 mg PO DAILY PRN sexual 10/30/23 10/30/23 activity #20 tabs Previous Rx's ?Medication ?Instructions ?Recorded sildenafil 100 mg tablet (Viagra) 100 mg PO DAILY PRN sexual 10/30/23 activity #20 tabs Allergies Allergy/AdvReac Type Severity Reaction Status Date / Time No Known Allergies Allergy Verified 08/23/23 10:46 General Stated Complaint: Chest Pain RICARDO: 3 Exam Narrative Exam Narrative: Gen: awake and alert, in no apparent distress. Appears well nourished. HEENT: PERRL, EOMs full and without nystagmus. External ears and nose normal, mucous membranes moist. Neck: Supple, full range of motion, no observable masses Lungs: Diffuse expiratory and inspiratory wheezing, junky sounding cough appreciated by this provider, no significant tachypnea appreciated. CV: Heart with regular rate and rhythm, no murmurs auscultated. Strong and symmetrical radial pulses. Abdomen: Soft, nondistended, non-tender to palpation. No rigidity, rebound tenderness, or guarding. MSK: No joint swelling, no redness. Full ROM without limitation, no external traumatic findings. No unilateral calf swelling or tenderness, no peripheral edema Skin: No rashes or lesions to visualized skin. Normal color, warm, and dry. Neuro: Cranial nerves II-XII intact and symmetrical bilaterally. 5/5 strength in all muscle groups x4 extremities. No sensory deficits. Ambulates with steady gait. Psych: Appropriate for situation. Course Vital Signs Vital signs: Vital Signs Pulse 66 07/05/24 12:15 Respiratory Rate 20 07/05/24 12:15 Blood Pressure 112/70 07/05/24 12:15 Pulse Oximetry 95 07/05/24 12:15 Pulse 68 07/05/24 12:24 Respiratory Rate 18 07/05/24 12:24 Blood Pressure 112/70 07/05/24 12:15 Pulse Oximetry 98 07/05/24 12:24 Oxygen Delivery Method Room Air 07/05/24 12:15 Oxygen Flow Rate 0 07/05/24 12:15 Lab/Test Results Lab/Test Results: Laboratory Tests Range/Units 07/05/24 07/05/24 12:19 13:17 WBC (4.4-10.8) 10^3/uL 10.00 RBC (4.36-5.78) 10^6/uL 4.90 Hgb (13.5-17.5) g/dL 15.4 Hct (40.0-50.0) % 44.7 MCV (80-95) fL 91 MCH (27.0-33.0) pg 31.4 MCHC (32.0-36.0) % 34.5 RDW (11.8-14.1) % 14.1 Plt Count (130-400) 10^3/uL 266 MPV (8.0-11.0) fL 9.2 Immature Gran % % 0.3 Neutrophils % % 68.8 Lymphocytes % % 20.9 Monocytes % % 7.5 Eosinophils % % 2.0 Basophils % % 0.5 Nucleated RBC % (0.0-0.3) % 0.0 Absolute Neutrophils (1.2-6.7) 10^3/uL 6.88 H Absolute Lymphocytes (1.2-3.4) 10^3/uL 2.09 Absolute Monocytes (0.1-0.8) 10^3/uL 0.75 Absolute Eosinophils (0.0-0.7) 10^3/uL 0.20 Absolute Basophils (0.0-0.2) 10^3/uL 0.05 APTT (20.6-30.2) sec 24.3 Sodium (136-145) mmol/L 134 L Potassium (3.5-5.1) mmol/L 3.8 Chloride (98-107) mmol/L 100 Carbon Dioxide (21.0-32.0) mmol/L 24.9 Anion Gap (3-11) mmol/L 9.1 BUN (7-18) mg/dL 29 H Creatinine (0.70-1.30) mg/dL 1.0 Est GFR (CKD-EPI 2020) (mL/min/1.73m2) 86.16 Glucose (74-106) mg/dL 141 H Calcium (8.5-10.1) mg/dL 9.4 Magnesium (1.8-2.4) mg/dL 2.1 Total Bilirubin (0.2-1.0) mg/dL 0.6 AST (15-37) U/L 135 H ALT (16-63) U/L 42 Alkaline Phosphatase (46-116) U/L 85 Troponin I (<or=76) ng/L 15172 H* 47221 H* NT-Pro-B Natriuret Pep (<300) pg/mL 269 Total Protein (6.4-8.2) g/dL 7.6 Albumin (3.4-5.0) g/dL 3.9 COVID-19 Source Nasopharynx SARS-CoV-2 (PCR) (Negative) Negative Influenza Type A (PCR) (Negative) Negative Influenza Type B (PCR) (Negative) Negative RSV (PCR) (Negative) Negative Medical Decision Making This is a 58-year-old male patient presenting for evaluation of shortness of breath and cough as well as chest heaviness and pain. My differential includes but is not limited to Considered pulmonary abnormalities including pneumonia, bronchitis, pleural effusion, pulmonary edema, reactive airway disease, pneumothorax. The patient is without tachycardia, hypoxia, or a pleuritic component to his pain to significantly increase my concern for pulmonary embolism. Considered ACS including STEMI, NSTEMI, unstable angina, certainly considered arrhythmia, pericarditis/myocarditis, aortic pathology. No GI symptoms or vomiting to suggest Boerhaave's, esophagitis, peptic ulcer disease, pancreatitis. Considered musculoskeletal pathologies including costochondritis, chest wall pain. EKG was obtained, showing no evidence of acute ischemia, interval abnormality or ectopy other than a right bundle branch block. Will obtain laboratory studies to include CBC, CMP, magnesium, troponin, and viral swab. I will obtain a chest x-ray and provide the patient with a duo nebulizer treatment, Solu-Medrol, and magnesium for his wheezing. -Patient's work of breathing and wheezing improved after the above-noted treatments. I independently interpreted the laboratory studies, which show no significant leukocytosis, anemia, or thrombocytopenia. The chemistry panel is without evidence of electrolyte abnormality, kidney dysfunction, or liver injury. He does have a BUN to creatinine ratio of greater than 20:1. Troponin is markedly elevated at 12,000 with interval increase on 1 and 3-hour rechecks to 13,000 and 14,000. BNP is low. COVID negative. Given the significant troponin elevation and our concern for acute ischemia/NSTEMI, I did repeat an EKG that shows no dynamic interval change, started the patient on a heparin drip and provided him with a dose of aspirin. I consulted [facility] cardiology, the patient was accepted to the cardiology service by Dr. Beard, but unfortunately they do not have a bed available until tomorrow. He will be transferred when a bed becomes available and until such time will be admitted to our hospitalist service. He remained hemodynamically appropriate and his chest pain had resolved while under my care. Transferred to the ICU without incident. Rajani Ocampo MD Medical Records Medical records reviewed: Yes I reviewed the patient's medical records. Quality:[facility] Health Related Social Needs: No Data to Display Critical Care Time Critical Care Time Critical Care Time: Yes Total Critical Care Time: 45 Attestation: Upon my evaluation, this patient had a high probability of imminent or life- threatening deterioration due to NSTEMI, which required my direct attention, intervention, and personal management. I have personally provided 45 minutes of critical care time exclusive of time spent on separately billable procedures. Time includes review of laboratory data, radiology results, discussion with consultants, and monitoring for po tential decompensation. Interventions were performed as documented above. Rajani Ocampo MD [facility] All Active Problems (Updated 07/05/24 @ 16:57 by Rajani Ocampo MD) Acute non-ST elevation myocardial infarction (NSTEMI) (Acute) COPD (chronic obstructive pulmonary disease) (Chronic) Cough (Acute) Chest pain (Acute) Encounter for screening colonoscopy (Acute) Vitamin D deficiency (Acute) Fatigue (Acute) Esophageal reflux (Chronic) Diabetes mellitus (Chronic) Depression (Chronic) Asthma (Chronic) Altered mental state (Acute) Bursitis of right shoulder (Acute) Paralabral cyst of right shoulder (Acute) Rupture of left proximal biceps tendon (Acute) Tendonitis of long head of biceps brachii of right shoulder (Acute) Traumatic tear of right rotator cuff (Acute) Medical History (Updated 07/05/24 @ 16:57 by Rajani Ocampo MD) Hyperplastic colon polyp Erectile dysfunction Hyperlipidemia Tobacco user History of depression Restless leg syndrome Overweight H/O esophageal reflux Low back pain Obstructive sleep apnea Surgical History (Updated 08/01/23 @ 14:34 by Penelope Momin) History of colonoscopy (~07/2023) S/P knee surgery History of spinal surgery L-spine April 2020 at [facility] S/P hernia repair Family History Father Heart disease Social History (Updated 07/31/23 @ 06:52 by LINO Keith) Smoking/Tobacco Use Status: Current every day Tobacco Type: cigars Smoking risk assessment performed?: Yes Alcohol Intake: current Alcohol Intake frequency: holidays/special occasions only Drug use: Never Substance use type: does not use Household members: spouse Housing: house Number of Children: 1 number of grandchildren: 2 current occupation: Retail sales shipping and recieving Pets and animals: Yes Pets and animals: cat(s) and dog(s) Current gender identity: male What is your relationship status?: Panel score (0-1 are the most socially isolated patients): 1 What type of physical activity do you participate in: walking Seatbelt use: never Do you feel safe at home: Yes Do you feel safe in your relationship?: Yes
[2024-07-05] MEDS: Clopidogrel 300 MG TAB 600 MG PO (14:51)
--- NOTE | 2024-07-05 15:15 | HPE_ITS ---
Date of service: 07/05/24 Time of Service: 15:16 Assessment and Plan Assessment and plan (1) Tobacco user: Assessment and plan: Recommend completing total cessation. At this time I will not start nicotine replacement as this can cause vasoconstriction and the patient appears already has significant narrowing of the arteries (2) Hyperlipidemia: Assessment and plan: Continue with medical management (3) History of depression: Assessment and plan: Continue with medical management (4) Chest pain: Status: Acute Assessment and plan: Exact etiology is unknown but it does appear that he has a significant risk of coronary artery disease. Agree with transfer to higher level of care for definitive evaluation and treatment. Patient is currently pain-free and is on a heparin as well as Plavix. (5) Cough: Status: Acute Assessment and plan: Most likely secondary to his underlying tobacco use/abuse. Will add cough medicine including Tessalon Perles and cough syrup (6) COPD (chronic obstructive pulmonary disease): Status: Chronic Assessment and plan: At this point this is not a formal diagnosis but the patient would benefit from pulmonary function test in the outpatient setting. As mentioned above, would recommend completing total cessation of tobacco use. I would continue with his steroid treatment for now History of Present Illness History of Present Illness Chief Complaint: Chest pain Narrative: This is a 58-year-old gentleman who presents to the ED with 1 day history of chest pain with associated shortness of breath as well as radiation to his left arm neck and jaw. Patient states prior to arrival he took some Tylenol and ibuprofen as well as a hot shower and none of these helping significantly. While in the ED a workup including EKGs and cardiac enzymes were performed with significant elevations in his troponins. His CBC was within normal limits, his CMP showed mildly decreased sodium at 134, patient does have an elevated BUN/creatinine ratio at 29/1.0, patient has mild elevation in his AST at 135. Viral panel is negative. Troponins are 12,000 674 and 13,000 593. There is no significant ST elevation or depression. Patient does complain of worsening cough over the last week and also endorses daily tobacco use of about smoking 7 cigarettes a night. Patient has never been since formally diagnosed with COPD. Patient states he did get cath approximately 5 years ago but does not remember the result. Patient is sure he he did not get a stent out. I reviewed his EKG and chest x-ray. Patient is currently in 0 pain. Of note the patient has been presented to [facility] and will be center tomorrow or later today once bed availability is established for cardiac cath. Review of Systems All systems reviewed & are unremarkable except as noted in HPI and below PFSH All Active Problems (Updated 07/05/24 @ 15:21 by Naresh Mcclendon MD) COPD (chronic obstructive pulmonary disease) (Chronic) Cough (Acute) Chest pain (Acute) Encounter for screening colonoscopy (Acute) Vitamin D deficiency (Acute) Fatigue (Acute) Esophageal reflux (Chronic) Diabetes mellitus (Chronic) Depression (Chronic) Asthma (Chronic) Altered mental state (Acute) Bursitis of right shoulder (Acute) Paralabral cyst of right shoulder (Acute) Rupture of left proximal biceps tendon (Acute) Tendonitis of long head of biceps brachii of right shoulder (Acute) Traumatic tear of right rotator cuff (Acute) Medical History (Updated 07/05/24 @ 15:21 by Naresh Mcclendon MD) Hyperplastic colon polyp Erectile dysfunction Hyperlipidemia Tobacco user History of depression Restless leg syndrome Overweight H/O esophageal reflux Low back pain Obstructive sleep apnea Surgical History (Updated 08/01/23 @ 14:34 by Penelope Momin) History of colonoscopy (~07/2023) S/P knee surgery History of spinal surgery L-spine April 2020 at [facility] S/P hernia repair Family History Father Heart disease Social History (Updated 07/31/23 @ 06:52 by LINO Keith) Smoking/Tobacco Use Status: Current every day Tobacco Type: cigars Smoking risk assessment performed?: Yes Alcohol Intake: current Alcohol Intake frequency: holidays/special occasions only Drug use: Never Substance use type: does not use Household members: spouse Housing: house Number of Children: 1 number of grandchildren: 2 current occupation: Retail sales shipping and recieving Pets and animals: Yes Pets and animals: cat(s) and dog(s) Current gender identity: male What is your relationship status?: Panel score (0-1 are the most socially isolated patients): 1 What type of physical activity do you participate in: walking Seatbelt use: never Do you feel safe at home: Yes Do you feel safe in your relationship?: Yes Meds Allergies and Home Medications Allergies Allergy/AdvReac Type Severity Reaction Status Date / Time No Known Allergies Allergy Verified 08/23/23 10:46 Home Medications ?Medication ?Instructions ?Recorded ?Confirmed ?Type gabapentin 300 mg capsule See Rx Instructions PO .COMPLEX 11/23/22 07/31/23 History rotigotine 2 mg/24 hour 1 patch transdermal DAILY 11/23/22 07/31/23 History transdermal 24 hour patch (Neupro) albuterol sulfate 90 mcg/actuation 2 inh inhalation Q6H PRN 05/15/23 07/31/23 History breath activated powder inhaler cholecalciferol (vitamin D3) 25 25 mcg PO DAILY 05/15/23 07/31/23 History mcg (1,000 unit) capsule mecobalamin (vitamin B12) 1,000 1,000 mcg PO DAILY 05/15/23 07/31/23 History mcg lozenges tiotropium bromide 18 mcg capsule 1 cap inhalation DAILY 05/15/23 07/31/23 History with inhalation device (Spiriva with HandiHaler) atorvastatin 40 mg tablet 40 mg PO HS 07/27/23 07/31/23 History sildenafil 100 mg tablet (Viagra) 100 mg PO DAILY PRN sexual 10/30/23 10/30/23 Rx activity #20 tabs Exam Narrative Exam Narrative: HEENT: Normocephalic atraumatic mucous membranes moist oropharynx clear extract motions are intact Neck: No lymphadenopathy no JVD no thyromegaly Cardiovascular: Regular rate and rhythm no murmur rubs or gallops Lungs: Bilateral expiratory wheeze with only mild accessory muscle use Abdomen: Soft nontender nondistended bowel sounds active Extremity: No sinus clubbing or edema bilaterally Neurologic: Cranial nerves II through XII are intact as tested reflexes normal extremity was tested Psych: Alert and oriented x 3 no apparent distress gives a linear history Results Labs 07/05/24 12:19 07/05/24 12:19 Labs: Laboratory Results - last 24 hr 07/05/24 07/05/24 12:19 13:17 WBC 10.00 RBC 4.90 Hgb 15.4 Hct 44.7 MCV 91 MCH 31.4 MCHC 34.5 RDW 14.1 Plt Count 266 MPV 9.2 Immature Gran % 0.3 Neutrophils % 68.8 Lymphocytes % 20.9 Monocytes % 7.5 Eosinophils % 2.0 Basophils % 0.5 Nucleated RBC % 0.0 Absolute Neutrophils 6.88 H Absolute Lymphocytes 2.09 Absolute Monocytes 0.75 Absolute Eosinophils 0.20 Absolute Basophils 0.05 APTT 24.3 Sodium 134 L Potassium 3.8 Chloride 100 Carbon Dioxide 24.9 Anion Gap 9.1 BUN 29 H Creatinine 1.0 Est GFR (CKD-EPI 2020) 86.16 Glucose 141 H Calcium 9.4 Magnesium 2.1 Total Bilirubin 0.6 AST 135 H ALT 42 Alkaline Phosphatase 85 Troponin I 82832 H* 50444 H* NT-Pro-B Natriuret Pep 269 Total Protein 7.6 Albumin 3.9 COVID-19 Source Nasopharynx SARS-CoV-2 (PCR) Negative Influenza Type A (PCR) Negative Influenza Type B (PCR) Negative RSV (PCR) Negative Last Vital Signs Pulse 66 07/05/24 14:16 Resp 18 07/05/24 14:48 BP 121/76 07/05/24 14:16 Pulse Ox 89 L 07/05/24 14:16 Time Spent Time spent with Patient: <40 minutes Time was spent: preparing to see the patient(eg.review tests), obtaining and/or reviewing separately otained hiistory, ordering medications,tests, procedures, referring, communicating with other health patient care technician, indepentently interpreting results, counseling the patient and care coordination
--- NOTE | 2024-07-05 16:04 | W.PC.ACHO ---
Registration Status: Primary Language: Preferred Language: ED Information & Data Chief Complaint Chest Pain 07/05/24 14:48 Chief Complaint Chest Pain 07/05/24 14:28 Triage Note CP with pain radiating down 07/05/24 12:15 both arms, with increased SOB and productive cough, 3lb weight gain from yesterday x1 Duo Neb prior to arrival from [facility] Medical / Surgical History (Last Updated 08/14/23 @ 12:00 by Laurie Torrez RN) Hyperplastic colon polyp Erectile dysfunction Hyperlipidemia Tobacco user History of depression Restless leg syndrome Overweight H/O esophageal reflux Low back pain Obstructive sleep apnea (Last Updated 08/01/23 @ 14:34 by Penelope Momin) History of colonoscopy (~07/2023) S/P knee surgery History of spinal surgery S/P hernia repair Most Recent Vital Signs Pulse 63 07/05/24 16:01 Pulse 57 L 07/05/24 16:01 Respiratory Rate 20 07/05/24 16:01 Respiratory Effort Non-Labored 07/05/24 14:48 Respiratory Depth Normal 07/05/24 14:48 Respiratory Pattern Normal 07/05/24 14:48 Blood Pressure 109/67 07/05/24 16:01 Blood Pressure Mean 79 07/05/24 16:01 Pulse Oximetry 97 07/05/24 16:01 Oxygen Delivery Method Room Air 07/05/24 12:15 Oxygen Flow Rate 0 07/05/24 12:15 Allergies No Known Allergies Allergy (Verified 08/23/23 10:46) Precautions Isolation Standard precaution 07/05/24 14:48 Active Medications Generic Name Dose Route Start Last Admin Trade Name Myronq PRN Reason Stop Dose Admin Heparin Sodium/Sodium Chloride 25,000 unit in 250 mls @ 0 mls/hr 07/05/24 13:00 07/05/24 13:26 IVINF 10 mls/hr INFUSION LEATHA 10 mls/hr Administration Protocol Per Protocol IV IV Catheter Type [Left Saline Lock Antecubital] IV Catheter Type [Right Saline Lock Antecubital] IV Catheter Gauge [Left 18 Antecubital] IV Catheter Gauge [Right 18 Antecubital] Diagnostics 07/05/24 07/05/24 07/05/24 Range/Units 15:30 13:17 12:19 WBC 10.00 (4.4-10.8) 10^3/uL RBC 4.90 (4.36-5.78) 10^6/uL Hgb 15.4 (13.5-17.5) g/dL Hct 44.7 (40.0-50.0) % MCV 91 (80-95) fL MCH 31.4 (27.0-33.0) pg MCHC 34.5 (32.0-36.0) % RDW 14.1 (11.8-14.1) % Plt Count 266 (130-400) 10^3/uL MPV 9.2 (8.0-11.0) fL Immature Gran % 0.3 % Neutrophils % 68.8 % Lymphocytes % 20.9 % Monocytes % 7.5 % Eosinophils % 2.0 % Basophils % 0.5 % Nucleated RBC % 0.0 (0.0-0.3) % Absolute Neutrophils 6.88 H (1.2-6.7) 10^3/uL Absolute Lymphocytes 2.09 (1.2-3.4) 10^3/uL Absolute Monocytes 0.75 (0.1-0.8) 10^3/uL Absolute Eosinophils 0.20 (0.0-0.7) 10^3/uL Absolute Basophils 0.05 (0.0-0.2) 10^3/uL APTT 24.3 (20.6-30.2) sec Sodium 134 L (136-145) mmol/L Potassium 3.8 (3.5-5.1) mmol/L Chloride 100 (98-107) mmol/L Carbon Dioxide 24.9 (21.0-32.0) mmol/L Anion Gap 9.1 (3-11) mmol/L BUN 29 H (7-18) mg/dL Creatinine 1.0 (0.70-1.30) mg/dL Est GFR (CKD-EPI 2020) 86.16 (mL/min/1.73m2) Glucose 141 H (74-106) mg/dL Calcium 9.4 (8.5-10.1) mg/dL Magnesium 2.1 (1.8-2.4) mg/dL Total Bilirubin 0.6 (0.2-1.0) mg/dL AST 135 H (15-37) U/L ALT 42 (16-63) U/L Alkaline Phosphatase 85 (46-116) U/L Troponin I Pending 69014 H* 14796 H* (<or=76) ng/L NT-Pro-B Natriuret Pep 269 (<300) pg/mL Total Protein 7.6 (6.4-8.2) g/dL Albumin 3.9 (3.4-5.0) g/dL COVID-19 Source Nasopharynx SARS-CoV-2 (PCR) Negative (Negative) Influenza Type A (PCR) Negative (Negative) Influenza Type B (PCR) Negative (Negative) RSV (PCR) Negative (Negative) Intake and Output - 24 Hour Total 07/05/24 12:04 thru 07/05/24 14:52 Intake Total 60 Output Total 475 Balance -415 Weight 88.7 kg Intake: IV 60 Output: Urine 475 Falls Risk Assessment History of Falls No History 07/05/24 12:35 Fall Total Score 0 07/05/24 12:35 Level of Risk Standard/Low Risk 07/05/24 12:35 Problems (Last Updated 08/14/23 @ 12:00 by Laurie Torrez RN) COPD (chronic obstructive pulmonary disease) (Chronic) Cough (Acute) Chest pain (Acute) v v v v v v v v v Sending and/or Receiving Nurses: Please use comment section below to note any information pertinent to the patient hand-off not included above. Information / Comments: Report received from: Tristin Knox RN
[2024-07-05 16:10] LABS: Troponin I 14213 ng/L (<or=76)
[2024-07-05] MEDS: Albuterol HFA 8 GM 60 PUFF INH IH (17:24)
[2024-07-05] MEDS: Enoxaparin 40 MG/0.4 ML SYR SC (18:18)
[2024-07-05] MEDS: Pantoprazole 40 MG TABCR PO (20:13)
[2024-07-05] MEDS: Acetaminophen 325 MG TAB PO (20:13)
[2024-07-05] MEDS: Atorvastatin 40 MG TAB PO (20:13)
[2024-07-05 20:14] LABS: PTT Activated 33.2 sec (20.6-30.2)
[2024-07-05] MEDS: Benzonatate 100 MG CAP PO (20:14)
[2024-07-05] MEDS: guaiFENesin/CODEINE PHOSPHATE 10 ML CUP PO (20:14)
[2024-07-05] MEDS: predniSONE 20 MG TAB 40 MG PO (20:14)
[2024-07-05 20:28] LABS: Troponin I 15274 ng/L (<or=76)
[2024-07-05] MEDS: nitroGLYcerin 0.4 MG TAB SL (20:57)
[2024-07-05] MEDS: MORPHine 4 MG/ML SYR IVP (22:10)
[2024-07-05] MEDS: Levalbuterol 1.25 MG/3 ML UPD VIAL UPD (22:13)
[2024-07-05 23:00] LABS: Troponin I 21411 ng/L (<or=76)
--- NOTE | 2024-07-05 23:15 | RT.EKG_ITS ---
APPROVED REPORT Exam: Resting ECG Reason for Exam: Non-STEMI with rising troponin Patient Location: I HR:68 bpm ECG Measurements Heart Rate 68 AXIS ME 179 P 75 QRSd 131 QRS -31 QT 411 T -24 QTc 438 Conclusion Sinus rhythm...normal P axis, V-rate 50- 99 Right bundle branch block...QRSd>120, terminal axis(90,270)
[2024-07-06] VITALS (78 sets, daily range): BP systolic 92–161; BP diastolic 53–94; PULSE 56–99; RESP 13–28; TEMP 37.2; O2SAT 82–97
[2024-07-06 01:02] LABS: Troponin I 20706 ng/L (<or=76)
--- NOTE | 2024-07-06 01:25 | CE_ITS ---
Date of service: 07/06/24 Time of Service: 01:26 Event Note: This is a 58-year-old gentleman admitted with non-STEMI signed out for the evening as having no residual pain in the ED or at admission but nurse from ICU called that at her signout at shift change around 7 PM, the patient was complaining of residual chest discomfort though not like his initial pain and was persistent retrosternally. It was a pressure type sensation and about a 4 out of 10. His initial pain was a burning intense pain over his chest and both arms with tingling down the arms being much more severe and having resolved at the time he reported to the ED the morning of admission having been gone the evening prior. 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 He currently has wheezing which is audible but it was worse recently. Wheezing had a flare and allergies as well. Because of patient's residual discomfort and troponins trending slightly upward the nurse was ordered to give nitroglycerin sublingually with nitroglycerin x 2. His pain down to a dull barely perceptible sensation and morphine sulfate completely getting rid of this pain. He has not initiated on nitroglycerin infusion because of his pain resolving. His repeat troponins doubled after his pain was resolved developed 21,000 beginning at 12,000 and increasing up to 15,000 while he was still having pain. After receiving his elevated troponin at 21,000, EKG was repeated and had no evidence of STEMI with no acute ischemic changes from comparison. He remained pain-free and a follow-up troponin was 20,000 trending downward which was reassuring. Patient's exam was unchanged with diffuse audible expiratory wheeze at bedside and bronchovesicular breath sounds diffusely with fair aeration on examination of the chest. His heart sounds were distant and he had a regular rate and rhythm with no murmur appreciated. He was speaking comfortably and in no distress. Assessment/plan: Non-STEMI with patient having residual pain upon admission now resolved with troponin peaked and plateaued at around 20,000. I did call [facility] [place] [place] transfer center and discussed with nurse who also discussed with the caramel cutter helper who felt comfortable waiting until morning for transfer with patient remaining pain-free and troponins peaked and plateaued with no acute EKG changes. I was in agreement with this plan the patient will be continued on heparin infusion with no nitroglycerin infusion but nitroglycerin sublingually as needed. If he has recurrent pain I will reinitiate call with transfer center. Time Spent with Patient Time spent in critical care(minutes): 60 Time Spent Included: Coordination of care, Chart review, Documenting critically ill care, Time at immediate bedside, Discussing critically ill care with other medical staff (Reviewed patient's symptoms and findings with transfer center for update with initial and follow-up call. This) and Other (Updated patient on plan of care.)
[2024-07-06] MEDS: nitroGLYcerin 0.4 MG TAB SL ×2 (01:49→02:36)
[2024-07-06] MEDS: guaiFENesin/CODEINE PHOSPHATE 10 ML CUP PO (02:36)
[2024-07-06] MEDS: Heparin in 0.45% NaCl 25,000 UNIT/250 ML BAG 13.5 UNIT IVINF (02:36)
[2024-07-06 03:19] LABS: PTT Activated 57.4 sec (20.6-30.2)
[2024-07-06 03:30] LABS: Troponin I 24297 ng/L (<or=76)
--- NOTE | 2024-07-06 03:30 | RT.EKG_ITS ---
APPROVED REPORT Exam: Resting ECG Reason for Exam: New Left Arm pain Patient Location: I HR:69 bpm ECG Measurements Heart Rate 69 AXIS VT 176 P 79 QRSd 133 QRS -30 QT 418 T -23 QTc 448 Conclusion Sinus rhythm...normal P axis, V-rate 50- 99 Right bundle branch block...QRSd>120, terminal axis(90,270)
[2024-07-06] MEDS: nitroGLYcerin in D5W 50 MG/250 ML BTL IV (04:04)
--- NOTE | 2024-07-06 08:28 | PDOC.CMIN ---
Date of service: 07/06/24 Time of Service: 08:28 Care Management Initial Assmt Initial Assessment Reason for Hospitalization: Chest pain Functional Status/Living Situation Patient Presentation: Alistair was lying in bed and watching TV when CM arrived. Alistair presented for evaluation of shortness of breath, cough, and chest pain. He has been [place] [facility] [place] and is awaiting transport. Alistair lives in a single family home in [place] with his Kendra, his client and his daughter close by. He states that he is well supported and very connected within his community. Alisatir is hopeful for [facility] to transfer him soon. CM will continue to follow. 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 Medications Medication Management: No Issues/Barriers identified Physical Functioning/Mobility Assistive Device: none identified Advance Directives Advance Directives: Do you have an Advance Directive: N 07/10/15 12:02 AD On File at [facility]: N 08/18/14 17:46 Date Asked 07/05/24 07/05/24 12:09 AD Date Reviewed COLST On File at [facility] COLST Date Scanned Code Status Resuscitation Status Full Code Portal Pt does not currently have a portal and education provided: Yes Insurance Coverage/Financial Issues Insurance: /[facility] Financial Issues: none identified Care Team Visit Care Team Role Provider Type Viola Reyes Primary Care Provider ADV PRACTICE REGISTERED NURSE Brandy Hancock Other Providers POULTRY SERVICE TECHNICIAN Celeste Contreras Other Providers POULTRY SERVICE TECHNICIAN Viola Gutierrez Other Providers POULTRY SERVICE TECHNICIAN Mandi Whitt RN Other Providers POULTRY SERVICE TECHNICIAN Marivel Mcclendon Other Providers POULTRY SERVICE TECHNICIAN Rajani Ocampo MD Emergency Provider [facility] STAFF PHYSICIAN Naresh Mcclendon MD Admit Provider [facility] STAFF PHYSICIAN Attending Provider Discharge Potential Discharge Needs: PCP F/U Appt Anticipated Barriers to Discharge: None Identified Patient/Family Education Needs: Review discharge instructions, discuss Ask Me Three Transportation: [place] Plan: Alistair has been [place] [facility] [place] and possible treatment of chest pain. He will be transported via EMS as coordinated by the nursing factory supervisor. Social Determinants of Health Screening Social Determinants of health last assessed in clinic: 07/06/24 Will the Patient Participate in the Screening?: Yes Do you worry about having a steady place to live?: no Problems where you live: no known problems In the past 12 months, have you had to go without electric, gas, oil or water in your home?: no 1. Within the past 12 months, we worried whether our food would run out before we got money to buy more.: Never true 2. Within the past 12 months, the food we bought just didn't last and we didn't have money to get more.: Never true Has lack of transportation kept you from medical appointments or from doing things needed for daily living?: no Has anyone in your life made you feel unsafe or unsupported?: no How hard is it for you to pay for the very basics like food, housing, medical care, and heating? Would you say it is:: Not hard at all Do you want help finding or keeping work or a job?: I do not need or want help If for any reason you need help with day-to-day activities such as bathing, preparing meals, shopping, managing finances, etc., do you get the help you need?: I don?t need any help How often do you feel lonely or isolated from those around you?: Never Do you speak a language other than Upper Sor[place] at home?: No Does the patient want assistance with any of the above?: No PFSH All Active Problems (Updated 07/05/24 @ 16:57 by Rajani Ocampo MD) Acute non-ST elevation myocardial infarction (NSTEMI) (Acute) COPD (chronic obstructive pulmonary disease) (Chronic) Cough (Acute) Chest pain (Acute) Encounter for screening colonoscopy (Acute) Vitamin D deficiency (Acute) Fatigue (Acute) Esophageal reflux (Chronic) Diabetes mellitus (Chronic) Depression (Chronic) Asthma (Chronic) Altered mental state (Acute) Bursitis of right shoulder (Acute) Paralabral cyst of right shoulder (Acute) Rupture of left proximal biceps tendon (Acute) Tendonitis of long head of biceps brachii of right shoulder (Acute) Traumatic tear of right rotator cuff (Acute) Medical History (Updated 07/05/24 @ 16:57 by Rajani Ocampo MD) Hyperplastic colon polyp Erectile dysfunction Hyperlipidemia Tobacco user History of depression Restless leg syndrome Overweight H/O esophageal reflux Low back pain Obstructive sleep apnea Surgical History (Updated 08/01/23 @ 14:34 by Penelope Momin) History of colonoscopy (~07/2023) S/P knee surgery History of spinal surgery L-spine April 2020 at [facility] S/P hernia repair Family History Father Heart disease Social History (Updated 07/31/23 @ 06:52 by LINO Keith) Smoking/Tobacco Use Status: Current every day Tobacco Type: cigars Smoking risk assessment performed?: Yes Alcohol Intake: current Alcohol Intake frequency: holidays/special occasions only Drug use: Never Substance use type: does not use Household members: spouse Housing: house Number of Children: 1 number of grandchildren: 2 current occupation: Retail sales shipping and recieving Pets and animals: Yes Pets and animals: cat(s) and dog(s) Current gender identity: male What is your relationship status?: Panel score (0-1 are the most socially isolated patients): 1 What type of physical activity do you participate in: walking Seatbelt use: never Do you feel safe at home: Yes Do you feel safe in your relationship?: Yes Readmission Within the Past 30 Days Yes or No: No
[2024-07-06] MEDS: Cholecalciferol (Vitamin D3) 1,000 UNIT TAB 1000 UNITS PO (08:50)
[2024-07-06] MEDS: guaiFENesin 600 MG TABCR PO (08:50)
[2024-07-06] MEDS: Cyanocobalamin 500 MCG TAB 1000 MCG PO (08:51)
[2024-07-06] MEDS: predniSONE 20 MG TAB 40 MG PO (08:51)
[2024-07-06] MEDS: Pantoprazole 40 MG TABCR PO (08:51)
[2024-07-06] MEDS: Benzonatate 100 MG CAP PO ×2 (08:52→14:34)
[2024-07-06] MEDS: Tiotropium Bromide-Respimat 10 PUFF INH IH (09:02)
[2024-07-06 09:09] LABS: PTT Activated 41.1 sec (20.6-30.2)
[2024-07-06 09:20] LABS: Troponin I 22579 ng/L (<or=76)
--- NOTE | 2024-07-06 14:29 | NUR.NOTE ---
Pt c/o left arm tingling and numbness. Nitroglycerine drip up titarated to 10 mcg/min, and with only partial relief, increased to 15 mcg/min. Dr. Mcclendon notified via [employer].
--- NOTE | 2024-07-06 15:51 | W.PM.DS.N ---
Date of service: 07/06/24 Time of Service: 13:00 DS: Diagnosis Discharge Diagnosis (1) Tobacco user: (2) Hyperlipidemia: (3) History of depression: (4) Chest pain: Status: Acute (5) Cough: Status: Acute (6) COPD (chronic obstructive pulmonary disease): Status: Chronic Discharge Plan Disposition Patient Disposition: Transfer-Acute Inpatient Care Specific Acute Inpt Facility: [facility] Condition: Stable Discharge Details Reason For Visit: Chest Pain Admit Date/Time: 07/05/24 16:10 Admit Provider: Naresh Mcclendon Attending Provider: Naresh Mcclendon Primary Care Provider: [place] Hospital Course Hospital Course: This is a 58-year-old gentleman who presents to the ED with 1 day history of chest pain with associated shortness of breath as well as radiation to his left arm neck and jaw. Patient states prior to arrival he took some Tylenol and ibuprofen as well as a hot shower and none of these helping significantly. While in the ED a workup including EKGs and cardiac enzymes were performed with significant elevations in his troponins. His CBC was within normal limits, his CMP showed mildly decreased sodium at 134, patient does have an elevated BUN/creatinine ratio at 29/1.0, patient has mild elevation in his AST at 135. Viral panel is negative. Troponins are 12,000 674 and 13,000 593. There is no significant ST elevation or depression. Patient does complain of worsening cough over the last week and also endorses daily tobacco use of about smoking 7 cigarettes a night. Patient has never been since formally diagnosed with COPD. Patient states he did get cath approximately 5 years ago but does not remember the result. Patient is sure he he did not get a stent out. I reviewed his EKG and chest x-ray. Patient is currently in 0 pain. Of note the patient has been presented to [facility] and will be center tomorrow or later today once bed availability is established for cardiac cath. Assessment and Plan Assessment and plan (1) Tobacco user: Assessment and plan: Recommend completing total cessation. At this time I will not start nicotine replacement as this can cause vasoconstriction and the patient appears already has significant narrowing of the arteries (2) Hyperlipidemia: Assessment and plan: Continue with medical management (3) History of depression: Assessment and plan: Continue with medical management (4) Chest pain: Status: Acute Assessment and plan: Exact etiology is unknown but it does appear that he has a significant risk of coronary artery disease. Agree with transfer to higher level of care for definitive evaluation and treatment. Patient is currently pain-free and is on a heparin as well as Plavix. (5) Cough: Status: Acute Assessment and plan: Most likely secondary to his underlying tobacco use/abuse. Will add cough medicine including Tessalon Perles and cough syrup (6) COPD (chronic obstructive pulmonary disease): Status: Chronic Assessment and plan: At this point this is not a formal diagnosis but the patient would benefit from pulmonary function test in the outpatient setting. As mentioned above, would recommend completing total cessation of tobacco use. I would continue with his steroid treatment for now PT was accepted as a transfer to [facility] and is awaiting transfer. Pt is currently on heparin as will as nitro drip and has only intermittent pain and LUE tingling. Home Meds and New Rx's Prescriptions: No Action cholecalciferol (vitamin D3) 25 mcg (1,000 unit) capsule 25 mcg PO DAILY mecobalamin (vitamin B12) 1,000 mcg lozenge 1,000 mcg PO DAILY Rx Instructions: allow to dissolve in mouth OR may chew lightly before swallowing albuterol sulfate 90 mcg/actuation aerosol powdr breath activated 2 inh inhalation Q6H PRN tiotropium bromide [Spiriva with HandiHaler] 18 mcg capsule, w/inhalation device 1 cap inhalation DAILY Rx Instructions: puncture 1 cap using device; one dose = 2 inhalations atorvastatin 40 mg tablet 40 mg PO HS sildenafil [Viagra] 100 mg tablet 100 mg PO DAILY PRN (Reason: sexual activity) Qty: 20 0RF Rx Instructions: administer 30 minutes to 4 hours before activity. Note dosage change. Neupro 2 mg/24 hour patch 24 hour 1 patch transdermal DAILY gabapentin 300 mg capsule See Rx Instructions PO .COMPLEX Rx Instructions: take 1-2 caps orally as needed 3-5 times per month when RLS are terrible; Discharge Instructions Activity:: transfer Equipment/Supplies:: No Equipment Needed Diet:: cardiac Discharge Data Discharge Date/Time-TO BE ENTERED AT DEPARTURE: 07/06/24 18:04 DS: Summary Time Spent with Patient providing and/or coordinating discharge services: Less than 30 minutes Status at Discharge Functional status at discharge: independent ambulation Overall status at discharge: patient is back to baseline Mental Status: mental status grossly normal Speech and Movement: speech and movement normal Mood: congruent mood Affect: normal affect Quality:SDOH Health Related Social Needs: No Data to Display Exam Psych Mental Status: mental status grossly normal Speech and Movement: speech and movement normal Mood: congruent mood Affect: normal affect DS: Data Vitals/I&O Vitals and I&O: Vital Signs Temperature 37.2 C 07/06/24 12:48 Temperature Source Temporal Artery Scan 07/06/24 12:48 Pulse 65 07/06/24 15:01 Pulse 65 07/06/24 15:01 Respiratory Rate 20 07/06/24 15:01 Respiratory Effort Non-Labored 07/05/24 16:44 Respiratory Depth Normal 07/05/24 16:44 Respiratory Pattern Normal 07/05/24 16:44 Blood Pressure 141/67 H 07/06/24 15:01 Blood Pressure Mean 85 07/06/24 15:01 Blood Pressure Position Left Lateral 07/05/24 16:44 Pulse Oximetry 94 07/06/24 15:01 Oxygen Delivery Method Room Air 07/06/24 12:48 Oxygen Flow Rate 0 07/06/24 12:48 Pain Level 0 07/06/24 12:48 Intake & Output 07/05/24 07/06/24 07/06/24 23:59 11:59 23:59 Intake Total 862.667 / 862.667 977.065 / 990.590 13.525 / 990.590 Output Total 0 / 2074 2375 / 2375 Balance -837.333 / -1212.333 -1397.935 / -1384.410 13.525 / -1384.410 Weight 86.1 kg 84.9 kg Intake: IV 132.667 / 132.667 257.065 / 270.590 13.525 / 270.590 Oral 730 / 730 720 / 720 Output: Urine 1700 / 5 2375 / 2375 Other: Urine Color Yellow Yellow Urine Appearance Clear Clear Urine Odor Strong None Stool Size Large Stool Characteristics Soft Formed Brown Data Completed and Pending Labs on day of discharge: Labs from last 24 hours 07/06/24 15:15: APTT 43.0 H 07/06/24 08:45: APTT 41.1 H, [place] [id number] H* 07/06/24 02:55: APTT 57.4 H, [place] I [id number] H* 07/06/24 00:32: [place]onin I [id number] H* 07/05/24 22:30: [place]onin I [id number] H* 07/05/24 19:50: APTT 33.2 H, [place] I [id number] H* 07/05/24 15:30: Troponin I 57705 H* [facility] All Active Problems (Updated 07/07/24 @ 00:02 by BERHANE NEAL) Acute non-ST elevation myocardial infarction (NSTEMI) (Acute) COPD (chronic obstructive pulmonary disease) (Chronic) Cough (Acute) Chest pain (Acute) Encounter for screening colonoscopy (Acute) Vitamin D deficiency (Acute) Fatigue (Acute) Esophageal reflux (Chronic) Diabetes mellitus (Chronic) Depression (Chronic) Asthma (Chronic) Altered mental state (Acute) Bursitis of right shoulder (Acute) Paralabral cyst of right shoulder (Acute) Rupture of left proximal biceps tendon (Acute) Tendonitis of long head of biceps brachii of right shoulder (Acute) Traumatic tear of right rotator cuff (Acute) Medical History (Updated 07/07/24 @ 00:02 by BERHANE NEAL) Hyperplastic colon polyp Erectile dysfunction Hyperlipidemia Tobacco user History of depression Restless leg syndrome Overweight H/O esophageal reflux Low back pain Obstructive sleep apnea Surgical History (Updated 08/01/23 @ 14:34 by Penelope Momin) History of colonoscopy (~07/2023) S/P knee surgery History of spinal surgery L-spine April 2020 at [facility] S/P hernia repair Family History Father Heart disease Social History (Updated 07/31/23 @ 06:52 by LINO Keith) Smoking/Tobacco Use Status: Current every day Tobacco Type: cigars Smoking risk assessment performed?: Yes Alcohol Intake: current Alcohol Intake frequency: holidays/special occasions only Drug use: Never Substance use type: does not use Household members: spouse Housing: house Number of Children: 1 number of grandchildren: 2 current occupation: Retail sales shipping and recieving Pets and animals: Yes Pets and animals: cat(s) and dog(s) Current gender identity: male What is your relationship status?: Panel score (0-1 are the most socially isolated patients): 1 What type of physical activity do you participate in: walking Seatbelt use: never Do you feel safe at home: Yes Do you feel safe in your relationship?: Yes Time Spent with Patient Time Spent with Patient: <45 minutes Time was spent: preparing to see the patient(eg.review tests), obtaining and/or reviewing separately otained hiistory, ordering medications,tests, procedures, referring, communicating with other health family member caretaker, indepentently interpreting results, counseling the patient and care coordination
--- NOTE | 2024-07-06 15:56 | W.PM.DS.N ---
Date of service: 07/06/24 Time of Service: 15:56 DS: Diagnosis Discharge Diagnosis (1) Tobacco user: (2) Hyperlipidemia: (3) History of depression: (4) Chest pain: Status: Acute (5) Cough: Status: Acute (6) COPD (chronic obstructive pulmonary disease): Status: Chronic Discharge Plan Disposition Patient Disposition: Transfer-Acute Inpatient Care Specific Acute Inpt Facility: [facility] Condition: Stable Discharge Details Reason For Visit: Chest Pain Admit Date/Time: 07/05/24 16:10 Admit Provider: Naresh Mcclendon Attending Provider: Naresh Mcclendon Primary Care Provider: [facility] Course Hospital Course: This is a 58-year-old gentleman who presents to the ED with 1 day history of chest pain with associated shortness of breath as well as radiation to his left arm neck and jaw. Patient states prior to arrival he took some Tylenol and ibuprofen as well as a hot shower and none of these helping significantly. While in the ED a workup including EKGs and cardiac enzymes were performed with significant elevations in his troponins. His CBC was within normal limits, his CMP showed mildly decreased sodium at 134, patient does have an elevated BUN/creatinine ratio at 29/1.0, patient has mild elevation in his AST at 135. Viral panel is negative. Troponins are 12,000 674 and 13,000 593. There is no significant ST elevation or depression. Patient does complain of worsening cough over the last week and also endorses daily tobacco use of about smoking 7 cigarettes a night. Patient has never been since formally diagnosed with COPD. Patient states he did get cath approximately 5 years ago but does not remember the result. Patient is sure he he did not get a stent out. I reviewed his EKG and chest x-ray. Patient is currently in 0 pain. Of note the patient has been presented to [facility] and will be center tomorrow or later today once bed availability is established for cardiac cath. Assessment and Plan Assessment and plan (1) Tobacco user: Assessment and plan: Recommend completing total cessation. At this time I will not start nicotine replacement as this can cause vasoconstriction and the patient appears already has significant narrowing of the arteries (2) Hyperlipidemia: Assessment and plan: Continue with medical management (3) History of depression: Assessment and plan: Continue with medical management (4) Chest pain: Status: Acute Assessment and plan: Exact etiology is unknown but it does appear that he has a significant risk of coronary artery disease. Agree with transfer to higher level of care for definitive evaluation and treatment. Patient is currently pain-free and is on a heparin as well as Plavix. (5) Cough: Status: Acute Assessment and plan: Most likely secondary to his underlying tobacco use/abuse. Will add cough medicine including Tessalon Perles and cough syrup (6) COPD (chronic obstructive pulmonary disease): Status: Chronic Assessment and plan: At this point this is not a formal diagnosis but the patient would benefit from pulmonary function test in the outpatient setting. As mentioned above, would recommend completing total cessation of tobacco use. I would continue with his steroid treatment for now PT was accepted as a transfer to [facility] and is awaiting transfer. Pt is currently on heparin as will as nitro drip and has only intermittent pain and LUE tingling. Home Meds and New Rx's Prescriptions: No Action cholecalciferol (vitamin D3) 25 mcg (1,000 unit) capsule 25 mcg PO DAILY mecobalamin (vitamin B12) 1,000 mcg lozenge 1,000 mcg PO DAILY Rx Instructions: allow to dissolve in mouth OR may chew lightly before swallowing albuterol sulfate 90 mcg/actuation aerosol powdr breath activated 2 inh inhalation Q6H PRN tiotropium bromide [Spiriva with HandiHaler] 18 mcg capsule, w/inhalation device 1 cap inhalation DAILY Rx Instructions: puncture 1 cap using device; one dose = 2 inhalations atorvastatin 40 mg tablet 40 mg PO HS sildenafil [Viagra] 100 mg tablet 100 mg PO DAILY PRN (Reason: sexual activity) Qty: 20 0RF Rx Instructions: administer 30 minutes to 4 hours before activity. Note dosage change. Neupro 2 mg/24 hour patch 24 hour 1 patch transdermal DAILY gabapentin 300 mg capsule See Rx Instructions PO .COMPLEX Rx Instructions: take 1-2 caps orally as needed 3-5 times per month when RLS are terrible; Discharge Instructions Activity:: transfer Equipment/Supplies:: No Equipment Needed Diet:: cardiac DS: Summary Time Spent with Patient providing and/or coordinating discharge services: Less than 30 minutes Status at Discharge Functional status at discharge: bed bound Overall status at discharge: patient is not back to baseline Mental Status: mental status grossly normal Speech and Movement: speech and movement normal Mood: congruent mood Affect: normal affect Quality:SDOH Health Related Social Needs: No Data to Display Exam Narrative Exam Narrative: HEENT: Normocephalic atraumatic mucous membranes moist oropharynx clear extract motions are intact Neck: No lymphadenopathy no JVD no thyromegaly Cardiovascular: Regular rate and rhythm no murmur rubs or gallops Lungs: Bilateral expiratory wheeze with only mild accessory muscle use Abdomen: Soft nontender nondistended bowel sounds active Extremity: No sinus clubbing or edema bilaterally Neurologic: Cranial nerves II through XII are intact as tested reflexes normal extremity was tested Psych: Alert and oriented x 3 no apparent distress gives a linear history Psych Mental Status: mental status grossly normal Speech and Movement: speech and movement normal Mood: congruent mood Affect: normal affect DS: Data Vitals/I&O Vitals and I&O: Vital Signs Temperature 37.2 C 07/06/24 12:48 Temperature Source Temporal Artery Scan 07/06/24 12:48 Pulse 65 07/06/24 15:01 Pulse 65 07/06/24 15:01 Respiratory Rate 20 07/06/24 15:01 Respiratory Effort Non-Labored 07/05/24 16:44 Respiratory Depth Normal 07/05/24 16:44 Respiratory Pattern Normal 07/05/24 16:44 Blood Pressure 141/67 H 07/06/24 15:01 Blood Pressure Mean 85 07/06/24 15:01 Blood Pressure Position Left Lateral 07/05/24 16:44 Pulse Oximetry 94 07/06/24 15:01 Oxygen Delivery Method Room Air 07/06/24 12:48 Oxygen Flow Rate 0 07/06/24 12:48 Pain Level 0 07/06/24 12:48 Intake & Output 07/05/24 07/06/24 07/06/24 23:59 11:59 23:59 Intake Total 862.667 / 862.667 977.065 / 990.590 13.525 / 990.590 Output Total 1700 / 2075 2375 / 2375 Balance -837.333 / -1212.333 -1397.935 / -1384.410 13.525 / -1384.410 Weight 86.1 kg 84.9 kg Intake: IV 132.667 / 132.667 257.065 / 270.590 13.525 / 270.590 Oral 730 / 730 720 / 720 Output: Urine 1700 / 2075 2375 / 2375 Other: Urine Color Yellow Yellow Urine Appearance Clear Clear Urine Odor Strong None Stool Size Large Stool Characteristics Soft Formed Brown Data Completed and Pending Labs on day of discharge: Labs from last 24 hours 07/06/24 15:15: APTT 43.0 H 07/06/24 08:45: APTT 41.1 H, [place]roponin I [address]75 H* 07/06/24 02:55: APTT 57.4 H, [place] [id number] H* 07/06/24 00:32: Troponin I [id number] H* 07/05/24 22:30: Troponin I [id number] H* 07/05/24 19:50: APTT 33.2 H, [place] [id number] H* 07/05/24 15:30: Troponin I [id number] H* PFS All Active Problems (Updated 07/05/24 @ 16:57 by Rajani Ocampo MD) Acute non-ST elevation myocardial infarction (NSTEMI) (Acute) COPD (chronic obstructive pulmonary disease) (Chronic) Cough (Acute) Chest pain (Acute) Encounter for screening colonoscopy (Acute) Vitamin D deficiency (Acute) Fatigue (Acute) Esophageal reflux (Chronic) Diabetes mellitus (Chronic) Depression (Chronic) Asthma (Chronic) Altered mental state (Acute) Bursitis of right shoulder (Acute) Paralabral cyst of right shoulder (Acute) Rupture of left proximal biceps tendon (Acute) Tendonitis of long head of biceps brachii of right shoulder (Acute) Traumatic tear of right rotator cuff (Acute) Medical History (Updated 07/05/24 @ 16:57 by Rajani Ocampo MD) Hyperplastic colon polyp Erectile dysfunction Hyperlipidemia Tobacco user History of depression Restless leg syndrome Overweight H/O esophageal reflux Low back pain Obstructive sleep apnea Surgical History (Updated 08/01/23 @ 14:34 by Penelope Momin) History of colonoscopy (~07/2023) S/P knee surgery History of spinal surgery L-spine April 2020 at [facility] S/P hernia repair Family History Father Heart disease Social History (Updated 07/31/23 @ 06:52 by LINO Keith) Smoking/Tobacco Use Status: Current every day Tobacco Type: cigars Smoking risk assessment performed?: Yes Alcohol Intake: current Alcohol Intake frequency: holidays/special occasions only Drug use: Never Substance use type: does not use Household members: spouse Housing: house Number of Children: 1 number of grandchildren: 2 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 Pets and animals: Yes Pets and animals: cat(s) and dog(s) Current gender identity: male What is your relationship status?: Panel score (0-1 are the most socially isolated patients): 1 What type of physical activity do you participate in: walking Seatbelt use: never Do you feel safe at home: Yes Do you feel safe in your relationship?: Yes Time Spent with Patient Time Spent with Patient: <45 minutes Time was spent: preparing to see the patient(eg.review tests), obtaining and/or reviewing separately otained hiistory, ordering medications,tests, procedures, referring, communicating with other health continuum of care manager, indepentently interpreting results, counseling the patient and care coordination
[2024-07-06] MEDS: Heparin in 0.45% NaCl 25,000 UNIT/250 ML BAG 16.5 UNIT IVINF (16:14)
== END 2024-07-06 18:04 | disposition short-term general hospital (02) | DRG 282 ==
LOC: ER 13:14 → ICU 16:21
PROVIDERS: Family Medicine; Admitting Provider Hospitalist; Emergency Provider Emergency Medicine; PCP Nurse Practitioner Family; Responsible Provider Hospitalist; Visit Provider Hospitalist
DX: I21.4 Non-ST elevation (NSTEMI) myocardial infarction (principal); F17.290 Nicotine dependence, other tobacco product, uncomplicated; E78.5 Hyperlipidemia, unspecified; R05.9 Cough, unspecified; R07.89 Other chest pain; J44.9 Chronic obstructive pulmonary disease, unspecified; F32.A Depression, unspecified; E55.9 Vitamin D deficiency, unspecified; K21.9 Gastro-esophageal reflux disease without esophagitis; E11.9 Type 2 diabetes mellitus without complications; G25.81 Restless legs syndrome; G47.33 Obstructive sleep apnea (adult) (pediatric); Z79.899 Other long term (current) drug therapy
CPT/HCPCS: 00123; 36415; 80053; 87637; 93005; 94640; 96365; 96366; 96367; 96375; 99291; J1650; 71046; 83735; 83880; 84484; 85025; 85730; 93010; 94664; 94760; 99222; 99239; J1644; J2270; J2305; J2919; J3475; J7512; J7614; J7620

== ENCOUNTER 2024-07-30 15:35 | Outpatient (REF) | payer BC, SELFPAY ==
[2024-07-30 18:13] LABS: ALT 49 U/L (16-63); AST 22 U/L (15-37); Albumin 3.9 g/dL (3.4-5.0); Alkaline Phosphatase 92 U/L (46-116); Anion Gap 4.6 mmol/L (3-11); BUN 13 mg/dL (7-18); Bilirubin, Total 0.5 mg/dL (0.2-1.0); CO2 29.4 mmol/L (21.0-32.0); Calcium 8.9 mg/dL (8.5-10.1); Calculated LDL 64 mg/dL (<100); Chloride 104 mmol/L (98-107); Cholesterol 121 mg/dL (<200); Estimated GFR 86.16 (mL/min/1.73m2); Glucose 105 mg/dL (74-106); HDL Cholesterol 42 mg/dL (>or=40); Potassium 3.9 mmol/L (3.5-5.1); Sodium 138 mmol/L (136-145); Total Protein 7.1 g/dL (6.4-8.2); Triglyceride 75 mg/dL (<150)
== END 2024-07-30 15:36 | disposition home or self-care (01) ==
LOC: NCHCN 15:35
PROVIDERS: PCP Nurse Practitioner Family; Visit Provider Nurse Practitioner Family
DX: I25.10 Atherosclerotic heart disease of native coronary artery without angina pectoris (principal); Z98.61 Coronary angioplasty status
CPT/HCPCS: 80053; 80061